=== PATIENT | male | born 1985 | race Caucasian/White ===

== ENCOUNTER → 2019-05-23 | Outpatient (CLI) | payer SELFPAY ==
[~2019-05-23] MED LIST: ALBU8.5H2 IH; CATHETER FLUSH 10 ML SYR IV PRN; CYCL10TA45 PO; DIVA500T15 PO; HOLD METFORMIN - RECEIVED CONTRAST 20 ML VIAL IV SCH; HYDR-2890 PO; IOHEXOL 350 MG/ML 100 ML (OMNIPAQUE 350) VIAL IV ONE; MORP30CA16 PO; NF-TORA10; NS 100 ML (IVPB) BAG IV ONE; OMEP40CA36 PO; ONDA8TAB13; PHEN-633; RISP0.5T2 PO
--- NOTE | 2019-05-23 11:34 | Diagnostic Imaging Report ---
PROCEDURE: CT abdomen and pelvis with contrast. TECHNIQUE: Multiple contiguous axial images were obtained through the abdomen and pelvis after administration of intravenous contrast. Auto Exposure Controls were utilized during the CT exam to meet ALARA standards for radiation dose reduction. INDICATION: Abdominal pain. COMPARISON: None available. FINDINGS: The visualized lung bases are clear. Cholecystectomy. The liver, spleen, adrenal glands, pancreas, and stomach are unremarkable. A 0.7 cm hypodensity within the mid left kidney is too small to fully characterize. Otherwise, the bilateral kidneys and ureters are unremarkable. No aneurysmal dilatation of the abdominal aorta. The urinary bladder is unremarkable. Diffuse mural thickening of the transverse, descending, and sigmoid colon is noted with minimal adjacent fat stranding. The distal sigmoid colon appears to be relatively spared. A loop of small bowel within the left abdomen is mildly dilated measuring up to 3.3 cm. However, no discrete transition point is identified. The proximal small bowel is not dilated. The prostate gland is not enlarged. No significant adenopathy, free air or free fluid within the abdomen and pelvis. Scattered osseous degenerative changes without acute osseous abnormality. IMPRESSION: Mural thickening involving the majority of the transverse and descending colon with portions of the sigmoid colon also involved. Findings are favored to relate to an underlying colitis, likely of an infectious or inflammatory process. Focally dilated loop of small bowel within the left mid abdomen, favored to relate to focal ileus versus physiologic in nature. No focal transition point to suggest definitive bowel obstruction. Cholecystectomy. Additional findings as above. Dictated by: Dictated on workstation # [id number]
== END ==
LOC: RAD 09:43
PROVIDERS: ATTEND Surgery
DX: K63.89 Other specified diseases of intestine (principal); N28.89 Other specified disorders of kidney and ureter; R10.9 Unspecified abdominal pain; Z90.49 Acquired absence of other specified parts of digestive tract
CPT/HCPCS: 74177

== ENCOUNTER 2019-07-30 06:29 | Outpatient (CLI) | payer MEDICAID ==
[~2019-07-30] VITALS: Ht 182.9 cm; Wt 95.5 kg
[~2019-07-30 06:29] MED LIST changes: -CATHETER FLUSH 10 ML SYR IV PRN; -HOLD METFORMIN - RECEIVED CONTRAST 20 ML VIAL IV SCH; -IOHEXOL 350 MG/ML 100 ML (OMNIPAQUE 350) VIAL IV ONE; -NS 100 ML (IVPB) BAG IV ONE
[2019-07-30] MEDS ORDERED: CYCL10TA9 PO (09:01)
[2019-07-30] MEDS ORDERED: RISP2TAB3 PO (09:01)
[2019-07-30] MEDS ORDERED: DIVA-76 PO (09:01)
[2019-07-31] MEDS ORDERED: METR500T PO (12:13)
[2019-07-31] MEDS ORDERED: CIPR500T4 PO (12:13)
== END 2019-07-30 09:20 ==
LOC: PREOP 06:29
PROVIDERS: ATTEND Surgery
DX: Z01.818 Encounter for other preprocedural examination (principal)

== ENCOUNTER 2019-07-31 08:52 | Emergency (ER) | payer MEDICAID ==
[~2019-07-31] VITALS: Ht 182 cm; Wt 96.9 kg
[~2019-07-31 08:52] MED LIST changes: +CYCL10TA9 PO; +DIVA-76 PO; +RISP2TAB3 PO
[2019-07-31] MEDS ORDERED: NS IV 1000 ML 1,000 ML IV SCH (09:39)
[2019-07-31] MEDS ORDERED: IBUPROFEN TABLET 200 MG TAB PO STA (09:39)
--- NOTE | 2019-07-31 09:39 | ED General ---
General Chief Complaint: Fever-Adult/Adol Stated Complaint: FEVER/WHITE COUNT HIGH Nursing Triage Note: ARRIVED VIA AMB TO ROOM 10. BROUGHT BY DAY SURGERY. PT WAS TO HAVE A HERNIA REPAIR TODAY WITH JOSE ALEJANDRO BUT THEY STATE HIS FEVER WAS 103, HIGH WHITE COUNT, AND TACYCARDIA. Nursing Sepsis Screen: Possible Severe Sepsis Risk History of Present Illness Date Seen by Provider: Jul 31, 2019 Time Seen by Provider: 09:37 Initial Comments 34-year-old male brought into for further evaluation. Patient was to have hernia repair surgery today but was found have a fever of 103 with an elevated white count and tachycardic. Patient does complain of some mild shortness of breath. He also has some diarrhea. He has chronic abdominal pain that is not new. Patient reports a chronic cough does not feel like it is new. Allergies and Home Medications Allergies Coded Allergies: Sulfamethoxazole (Unverified Allergy, HIVES, 08/22/12) latex (Unverified Allergy, 08/22/12) SWELLING trimethoprim (Unverified Allergy, HIVES, 08/22/12) Uncoded Allergies: [id number] (EYE DROPS) (Allergy, Mild, 11/18/08) PAPER TAPE (Allergy, Mild, RASH, 11/18/08) Home Medications Cyclobenzaprine HCl 10 Mg Tablet, 10 MG PO BID, (Reported) Divalproex Sodium 500 Mg Tablet.dr, 500 MG PO BID, (Reported) Risperidone 2 Mg Tablet, 2 MG PO BID, (Reported) Patient Home Medication List Home Medication List Reviewed: Yes Review of Systems Review of Systems Constitutional: chills Respiratory: cough, short of breath Cardiovascular: no symptoms reported Gastrointestinal: abdominal pain, diarrhea Genitourinary: no symptoms reported Musculoskeletal: no symptoms reported Skin: no symptoms reported Past Mdptcxx-Tncytv-Gyxsfk Hx Past Med/Social Hx: Reviewed Nursing Past Med/Soc Hx Patient Social History Alcohol Use: Denies Use Recreational Drug Use: No Smoking Status: Current Everyday Smoker Type Used: Cigarettes Recent Foreign Travel: No Contact w/Someone Who Travel: No Recent Infectious Disease Expo: No Recent Hopitalizations: No Immunizations Up To Date Date of Influenza Vaccine: May 20, 2012 Seasonal Allergies Seasonal Allergies: No Past Medical History Surgeries: Yes (cyst removed from thyroid x2, lipoma removed) Appendectomy, Gallbladder, Thyroidectomy Respiratory: Yes COPD Cardiac: No Neurological: Yes Seizure Disorder Genitourinary: No Gastrointestinal: Yes Abdominal Hernia Musculoskeletal: Yes Fibromyalgia Endocrine: No HEENT: No Cancer: No Psychosocial: Yes Schizophrenia Integumentary: No Blood Disorders: No Physical Exam-Suspected Sepsis Physical Exam Vital Signs Vital Signs - First Documented 07/31/19 08:52 Temp 38.1 Pulse 140 B/P (MAP) 103/84 (90) Pulse Ox 94 O2 Delivery Room Air Capillary Refill : Less Than 3 Seconds Blood Pressure Mean: 90 POS Height, Weight, BMI Height: '" Weight: lbs. oz. kg; 29.00 BMI Method: General Appearance: Other (obviously ill) Neck: Normal Inspection, Non Tender Respiratory: Lungs Clear, Normal Breath Sounds Cardiovascular: Tachycardia Gastrointestinal: Tenderness (mild periumbilical) Extremity: Normal Capillary Refill, Normal Inspection, Normal Range of Motion Neurologic/Psychiatric: Oriented x3, No Motor/Sensory Deficits, Normal Mood/Affect Skin: normal color, warm/dry Focused Exam Lactate Level 07/31/19 09:59: Lactic Acid Level 0.88 Lactic Acid Level Laboratory Tests Test 07/31/19 09:59 Lactic Acid Level 0.88 MMOL/L (0.50-2.00) Progress/Results/Core Measures Suspected Sepsis Recent Fever Within 48 Hours: Yes Infection Criteria Present: Suspected New Infection New/Unexplained Altered Menta: No Sepsis Screen: Possible Severe Sepsis Risk SIRS Temperature: Pulse: 140 Respiratory Rate: Blood Pressure 103 /84 Mean: 90 07/31/19 09:59: Lactic Acid Level 0.88 Results/Orders Lab Results Laboratory Tests Test 07/31/19 09:59 07/31/19 10:28 Range/Units Lactic Acid Level 0.88 0.50-2.00 MMOL/L Urine Color YELLOW Urine Clarity CLEAR Urine pH 5.5 5-9 Urine Specific [place] 1.025 H 1.016-1.022 Urine Protein TRACE NEGATIVE Urine Glucose (UA) NEGATIVE NEGATIVE Urine Ketones TRACE H NEGATIVE Urine Nitrite NEGATIVE NEGATIVE Urine Bilirubin 1+ H NEGATIVE Urine Urobilinogen 0.2 < = 1.0 MG/DL Urine Leukocyte Esterase NEGATIVE NEGATIVE Urine RBC (Auto) NEGATIVE NEGATIVE Urine RBC NONE /HPF Urine WBC RARE /HPF Urine Squamous Epithelial Cells NONE /HPF Urine Crystals NONE /LPF Urine Bacteria NEGATIVE /HPF Urine Casts NONE /LPF Urine Mucus LARGE H /LPF Urine Culture Indicated NO Micro Results Microbiology 07/31/19 Influenza Types A,B Antigen (MERLE) - Final, Complete My Orders Orders - FAIZAN STEWARD DO Lactic Acid Analyzer (07/31/19 09:39) Ua Culture If Indicated (07/31/19 09:39) Influenza A And B Antigens (07/31/19 09:39) Ibuprofen Tablet (Motrin Tablet) (07/31/19 09:39) Ed Iv/Invasive Line Start (07/31/19 09:39) Ns Iv 1000 Ml (Sodium Chloride 0.9%) (07/31/19 09:39) Ct Abdomen/Pelvis W (07/31/19 10:54) Chest Pa/Lat (2 View) (07/31/19 10:54) Iohexol Injection (Omnipaque 350 Mg/Ml 1 (07/31/19 11:15) Received Contrast (Hold Metformin- Contr (07/31/19 11:15) Sodium Chloride Flush (Catheter Flush Sy (07/31/19 11:15) Ns (Ivpb) (Sodium Chloride 0.9% Ivpb Bag (07/31/19 11:15) Medications Given in ED Current Medications Medications Dose Ordered Sig/Gricelda Route Start Time Stop Time Status Last Admin Dose Admin Iohexol 100 ml ONCE ONCE IV 07/31/19 11:15 07/31/19 11:16 DC 07/31/19 11:33 100 ML Sodium Chloride 10 ml NEEDED PRN IV 07/31/19 11:15 07/31/19 11:33 10 ML Sodium Chloride 100 ml ONCE ONCE IV 07/31/19 11:15 07/31/19 11:16 DC 07/31/19 11:33 80 ML Vital Signs/I&O 07/31/19 07/31/19 08:52 11:06 Temp 38.1 37.7 Pulse 140 B/P (MAP) 103/84 (90) Pulse Ox 94 O2 Delivery Room Air Capillary Refill : Less Than 3 Seconds Blood Pressure Mean: 90 POS Departure Impression Primary Impression: Colitis Disposition: 01 HOME, SELF-CARE Condition: Stable Departure-Patient Inst. Referrals: NO,LOCAL PHYSICIAN (PCP/Family) Primary Care Physician Patient Instructions: Colitis Scripts Metronidazole (Flagyl) 500 Mg Tablet 500 MG PO Q8H for 7 Days, #21 TAB Prov: FAIZAN STEWARD DO 07/31/19 Ciprofloxacin HCl (Ciprofloxacin HCl) 500 Mg Tablet 500 MG PO BID, #14 TAB Prov: FAIZAN STEWARD DO 07/31/19 FAIZAN STEWARD DO Jul 31, 2019 09:39 POS
[2019-07-31 10:33] LABS: CLARITY,URINE CLEAR; COLOR,URINE YELLOW; GLUCOSE, URINE (UA) NEGATIVE (NEGATIVE); KETONES,URINE TRACE (NEGATIVE); LEUKOCYTE ESTERASE ,URINE NEGATIVE (NEGATIVE); NITRITE,URINE NEGATIVE (NEGATIVE); PH,URINE 5.5 (5-9); PROTEIN,URINE TRACE (NEGATIVE)
[2019-07-31 10:46] LABS: BACTERIA,URINE NEGATIVE /HPF; BILIRUBIN,URINE 1+ (NEGATIVE); WBC,URINE RARE /HPF
[2019-07-31] MEDS ORDERED: HOLD METFORMIN - RECEIVED CONTRAST 20 ML VIAL IV SCH (11:15)
[2019-07-31] MEDS ORDERED: NS 100 ML (IVPB) BAG IV ONE (11:15)
[2019-07-31] MEDS ORDERED: IOHEXOL 350 MG/ML 100 ML (OMNIPAQUE 350) VIAL IV ONE (11:15)
[2019-07-31] MEDS ORDERED: CATHETER FLUSH 10 ML SYR IV PRN (11:15)
--- NOTE | 2019-07-31 11:52 | Diagnostic Imaging Report ---
INDICATION: Fever. COMPARISON: 11/18/2008. FINDINGS: Frontal and lateral views of the chest demonstrate normal heart size and pulmonary vascularity. The lungs are clear. There are no signs of infiltrate, pleural effusions or pneumothoraces. The visualized osseous structures show no acute abnormalities. IMPRESSION: 1. No acute process. No signs of infiltrates, effusions or pneumothoraces. Dictated by: Dictated on workstation # [id number]
--- NOTE | 2019-07-31 11:58 | Diagnostic Imaging Report ---
CT ABDOMEN/PELVIS W PROCEDURE: CT abdomen and pelvis with contrast. TECHNIQUE: Multiple contiguous axial images were obtained through the abdomen and pelvis after administration of intravenous contrast. INDICATION: Fever, tachycardia COMPARISON: 05/23/2019 FINDINGS: There is mild low-density in the liver likely due to fatty infiltration. There is also calcification in the lateral segment of left hepatic lobe which could be due to granuloma or postoperative residual. Gallbladder is surgically absent. There is no evidence of pancreatic, adrenal gland or splenic abnormality. Kidneys are stable and unremarkable in appearance. There is no evidence of free fluid. Mild mural thickening is again seen throughout the colon as described on the previous study. There is probable mild mural thickening also at the level of the terminal ileum. There is no evidence of organized fluid collection. No pathologic adenopathy is identified. IMPRESSION: Mural thickening involving the terminal ileum and the colon. The possibility of colitis is not excluded. Consideration should also be given to inflammatory bowel disease. If warranted, endoscopy may be of value with particular attention to the ileocolic junction. Dictated by: Dictated on workstation # [id number]
[2019-07-31] MEDS ORDERED: CIPR500T4 PO (12:13)
[2019-07-31] MEDS ORDERED: METR500T PO (12:13)
[2019-07-31 12:26] VITALS: BP 115/66
== END 2019-07-31 12:26 | disposition home or self-care (01) ==
LOC: EDUNIT# 08:52 → ER 08:54
DX: K52.9 Noninfective gastroenteritis and colitis, unspecified (principal); J44.9 Chronic obstructive pulmonary disease, unspecified; G40.909 Epilepsy, unspecified, not intractable, without status epilepticus; M79.7 Fibromyalgia; F20.9 Schizophrenia, unspecified; F17.210 Nicotine dependence, cigarettes, uncomplicated; Z90.49 Acquired absence of other specified parts of digestive tract; Z88.2 Allergy status to sulfonamides; Z88.1 Allergy status to other antibiotic agents; Z91.040 Latex allergy status
CPT/HCPCS: 71046; 74177; 81000; 83605; 87804; 96360

== ENCOUNTER → 2019-08-25 | Outpatient (CLI) | payer MEDICAID ==
[~2019-08-25] MED LIST changes: +CIPR500T4 PO; +METR500T PO
== END | disposition home or self-care (01) ==
LOC: PREOP 05:37
PROVIDERS: ATTEND Surgery
DX: Z01.818 Encounter for other preprocedural examination (principal)

== ENCOUNTER 2019-09-01 05:41 | Outpatient (CLI) | payer MEDICAID ==
[~2019-09-01] VITALS: Ht 182.9 cm; Wt 95.5 kg
[2019-09-01 09:12] LABS: BASOPHILS % (AUTO) 0 % (0-10); EOSINOPHILS # (AUTO) 0.3 10^3/uL (0.0-0.3); EOSINOPHILS % (AUTO) 3 % (0-10); HEMATOCRIT 45 % (40-54); HEMOGLOBIN 15.6 G/DL (13.3-17.7); LYMPHOCYTES # (AUTO) 2.9 X 10^3 (1.0-4.0); LYMPHOCYTES % (AUTO) 38 % (12-44); MEAN CORPUSCULAR HEMOGLOBIN 29 PG (25-34); MEAN CORPUSCULAR HGB CONC 35 G/DL (32-36); MEAN CORPUSCULAR VOLUME 84 FL (80-99); MEAN PLATELET VOLUME 11.1 FL (7.4-10.4); MONOCYTES # (AUTO) 0.9 X 10^3 (0.0-1.0); MONOCYTES % (AUTO) 11 % (0-12); NEUTROPHILS # (AUTO) 3.7 X 10^3 (1.8-7.8); NEUTROPHILS % (AUTO) 48 % (42-75); PLATELET COUNT 207 10^3/uL (130-400); RED CELL DISTRIBUTION WIDTH 13.8 % (10.0-14.5); WHITE BLOOD COUNT 7.7 10^3/uL (4.3-11.0)
[2019-09-03] MEDS ORDERED: ACHD5005 PO (11:43)
== END 2019-09-01 09:12 | disposition home or self-care (01) ==
LOC: PREOP 05:41
PROVIDERS: ATTEND Surgery
DX: Z01.818 Encounter for other preprocedural examination (principal); Z01.812 Encounter for preprocedural laboratory examination; K43.2 Incisional hernia without obstruction or gangrene
CPT/HCPCS: 36415; 85025; 87081

== ENCOUNTER 2019-09-01 08:42 | Day surgery (SDC) | payer MEDICAID ==
[~2019-09-01] VITALS: Ht 182.9 cm; Wt 96.9 kg
[2019-09-01] VITALS (8 sets, daily range): BP systolic 111–131; BP diastolic 60–92
[2019-09-01] MEDS ORDERED: LACTATED RINGERS 1,000 ML IV ONE (08:48)
[2019-09-01] MEDS ORDERED: LACTATED RINGERS 1,000 ML IV STA (08:54)
[2019-09-01] MEDS ORDERED: PROPOFOL INJECTION 50 ML IV ONE (09:53)
[2019-09-01] MEDS ORDERED: MIDAZOLAM 2 MG/2 ML (VERSED) VIAL ONE (09:54)
--- NOTE | 2019-09-01 10:05 | Progress Note-Pre Operative ---
Pre-Operative Progress Note H&P Reviewed The H&P was reviewed, patient examined and no changes noted. Time Seen by Provider: 10:03 Date H&P Reviewed: Sep 01, 2019 Time H&P Reviewed: 10:02 Pre-Operative Diagnosis: colitis GLENNA BLOUNT DO Sep 01, 2019 10:05
--- NOTE | 2019-09-01 10:32 | Progress Note-Post Operative ---
Post-Operative Progess Note Surgeon (s)/Structural Analysis Engineer (s) Surgeon GLENNA BLOUNT DO Structural Analysis Engineer: Brooke Zamarripa Pre-Operative Diagnosis colitis Post-Operative Diagnosis Diverticula Interna Hemorrhoids Procedure & Operative Findings Date of Procedure 09/01/19 Procedure Performed/Findings Colon Anesthesia Type IV sedation by PRINCIPAL LIBRARIAN Estimated Blood Loss Estimated blood loss (mL): none Specimens/Packing Specimens Removed none GLENNA BLOUNT DO Sep 01, 2019 10:32
--- NOTE | 2019-09-01 10:33 | Endoscopy Discharge Instruct ---
Endo Procedure/Findings Findings 1.: Diverticulosis 2.: Internal Hemorrhoids Discharge Instructions - Activity: You might feel a little sleepy until tomorrow. This is due to the medicine you received to relax you. Until tomorrow, you should: NOT drive a car, operate machinery or power tools. NOT drink any alcoholic beverages. NOT make any important decisions or sign importortant papers. Do not return to work until tomorrow, unless otherwise instructed. Resume previous activities tomorrow. Diet: Start by taking liquids. If you tolerate liquids, advance to solid food. make an appointment for one week 1.: Colonscopy in 10 years Notify Physician - If you experience excessive bleeding, unusual abdominal pain, fever, or chest pain, contact your doctor immediately. GLENNA BLOUNT DO Sep 01, 2019 10:33
--- NOTE | 2019-09-01 12:06 | Anesthesia-General Post-Op ---
MAC Patient Condition Mental Status/LOC: Same as Preop Cardiovascular: Satisfactory Nausea/Vomiting: Absent Respiratory: Satisfactory Pain: Controlled Complications: Absent Post Op Complications Complications None Follow Up Care/Instructions Patient Instructions None needed. Anesthesiology Discharge Order Discharge Order Patient is doing well, no complaints, stable vital signs, no apparent adverse anesthesia problems. No complications reported per nursing. RACHEL RUSSO CRNA Sep 01, 2019 12:06
--- NOTE | 2019-09-02 01:01 | OPERATIVE REPORT ---
DATE OF SERVICE: 09/01/2019 PREOPERATIVE DIAGNOSIS: Colitis. POSTOPERATIVE DIAGNOSES: Diverticula, internal hemorrhoids. PROCEDURE: Colonoscopy. SURGEON: Daniele English DO. BRICKMASON HELPER: KELLEY Whitney. ANESTHESIA: IV sedation by GENE. SPECIMENS: None. BLOOD LOSS: None. FLUIDS: Per anesthesia. POSTOPERATIVE CONDITION: Stable. INDICATION FOR PROCEDURE: The patient is a 34-year-old male, who has been having abdominal pain and sent him to the emergency room twice. Both times he had a CAT scan, which showed some colitis and he needed a workup. FINDINGS: The patient had normal appearing colon, very small diverticula and some internal hemorrhoids. No other obvious pathology, no inflammation, no ulceration seen. PROCEDURE NOTE: After informed consent was obtained, the patient was brought to the endoscopy suite and placed in the left lateral decubitus position. He was administered IV sedation by the FARMWORKER [employer], who then monitored his vitals the entire time, heart rate, blood pressure and pulse ox. A scope was inserted all the way to 140 cm, able to get to the cecum, took a picture of appendiceal orifice, noted the ileocecal valve and then slowly withdrew the scope insufflating to look circumferentially at the galarza looking at the cecum, up the ascending colon to the hepatic flexure, then down the transverse colon to the splenic flexure, into the descending colon and down into the sigmoid. In the sigmoid, saw one small diverticula and then continued down into the rectum, retroflexed the rectal vault, saw some very minimal internal hemorrhoids. No other obvious pathology. Removed the scope. The patient tolerated the procedure and recovered in endoscopy suite. Job ID: [id number] DocumentID: [id number] Dictated Date: 09/01/2019 16:42:09 Ferry Engineer Date: 09/02/2019 01:01:26 Dictated By: DANIELE ENGLISH DO
== END 2019-09-01 11:25 | disposition home or self-care (01) ==
LOC: ENDO 08:42
PROVIDERS: ATTEND Surgery
DX: K57.30 Diverticulosis of large intestine without perforation or abscess without bleeding (principal); K64.8 Other hemorrhoids; K52.9 Noninfective gastroenteritis and colitis, unspecified; Z80.0 Family history of malignant neoplasm of digestive organs; F31.9 Bipolar disorder, unspecified; G40.909 Epilepsy, unspecified, not intractable, without status epilepticus; K43.0 Incisional hernia with obstruction, without gangrene; Z79.899 Other long term (current) drug therapy

== ENCOUNTER 2019-09-03 08:42 | Day surgery (SDC) | payer MEDICAID ==
[2019-09-03] VITALS (11 sets, daily range): BP systolic 121–134; BP diastolic 69–94
[~2019-09-03] VITALS: Ht 182.9 cm; Wt 95.5 kg
[2019-09-03] MEDS ORDERED: ceFAZolin 2 GM/50 ML NS 50 ML IV ONE (08:45)
[2019-09-03] MEDS ORDERED: CATHETER FLUSH 10 ML SYR IV PRN (09:15)
[2019-09-03] MEDS: LACTATED RINGERS 1,000 ML IV PRN ×2 (09:21→11:10)
[2019-09-03] MEDS ORDERED: RT-ALBUINH INH (09:37)
[2019-09-03] MEDS ORDERED: BUP/EPI 0.5% 1:200,000 (SENSORCAINE) 30 ML VIAL ONE (09:52)
[2019-09-03] MEDS ORDERED: MIDAZOLAM 2 MG/2 ML (VERSED) VIAL ONE (10:36)
[2019-09-03] MEDS ORDERED: fentaNYL INJECTION 100 MCG/2 ML AMP ONE (10:36)
--- NOTE | 2019-09-03 10:41 | Progress Note-Pre Operative ---
Pre-Operative Progress Note H&P Reviewed The H&P was reviewed, patient examined and no changes noted. Time Seen by Provider: 10:37 Date H&P Reviewed: Sep 03, 2019 Time H&P Reviewed: 10:38 Pre-Operative Diagnosis: Incarcerated incisional/ventral hernia GLENNA BLOUNT DO Sep 03, 2019 10:41
[2019-09-03] MEDS ORDERED: proPOfol 200 MG/20 ML (DIPRIVAN) VIAL IV ONE (11:20)
[2019-09-03] MEDS ORDERED: DEXAMETHASONE 10 MG/ML (DECADRON) 1 ML VIAL ONE (11:20)
[2019-09-03] MEDS ORDERED: LIDOCAINE PF 2% 5 ML (XYLOCAINE) VIAL ONE (11:20)
[2019-09-03] MEDS ORDERED: ONDANSETRON 4 MG/2 ML (SDV) Z0FRAN ONE (11:20)
[2019-09-03] MEDS ORDERED: SEVOFLURANE (ULTANE) 15 ML INHAL SOLN ONE ×2 (11:20→11:33)
[2019-09-03] MEDS ORDERED: NEOSTIGMINE 1 MG/ML 5 ML SYRINGE ONE (11:20)
[2019-09-03] MEDS ORDERED: GLYCOPYRROLATE 0.2 MG/ML (ROBINUL) 2 ML VIAL ONE (11:20)
--- NOTE | 2019-09-03 11:42 | Progress Note-Post Operative ---
Post-Operative Progess Note Surgeon (s)/Construction Equipment Mechanic (s) Surgeon GLENNA BLOUNT DO Construction Equipment Mechanic: José Pre-Operative Diagnosis Incarcerated incisional/ventral hernia Post-Operative Diagnosis same Procedure & Operative Findings Date of Procedure 09/03/19 Procedure Performed/Findings Lap Incarcerated Inc/Ventral Herniarraphy with mesh placement Anesthesia Type GET Estimated Blood Loss Estimated blood loss (mL): scant Specimens/Packing Specimens Removed hernia contents GLENNA BLOUNT DO Sep 03, 2019 11:41
[2019-09-03] MEDS ORDERED: ACHD5005 PO (11:43)
--- NOTE | 2019-09-03 11:44 | Discharge Inst-Surgical ---
Discharge Inst-Surgical Depart Medication/Instructions New, Converted or Re-Newed RX: RX Given to Pt/Family Patient Instructions Follow up Appt: Make appointment for 1 week. [phone] Instructions: No lifting greater than 20 pounds. No strenuous activity. May shower in 24 hours, no tub bath or soaking. Use incentive spirometer at home as directed. No Smoking Skin/Wound Care: May remove bandages in am. You need to leave the Dermabond on incision it will fall off on it's own. Symptoms to Report: Appetite Changes, Extremity Discoloration, Numbness/Tingling, Swelling Increased, Bleeding Excessive, Eyesight Changes, Pain Increased, Urine Color Change, Constipation(Persistent), Fever over 101 degree F, Pain/Pressure in chest, Urinating Difficulty, Cough Up/Vomit Blood, Heart Beat Irreg/Pounding, Pain/Pressure in jaw, Cramps in feet or legs, Lightheadedness, Pain/Pressure in shoulder, Diarrhea(Persistent), Memory Changes Suddenly, Questions/Concerns, Weight gain consecutive days, Dizziness/Fainting, Nausea/Vomiting, Shortness of Breath, Weight gain over 2 pounds If questions or concerns contact your physician Or seek help at emergency department. Activity Activity as Tolerated: Yes Activity Instructions: Avoid Stress to Incision Driving Instructions: No Driving/Refer to Dr. Post Discharge Diet: No Restrictions Diet After 24 Hours: Clear Liquid if Nauseous If Any Problems/Questions/Issu: Contact Your Physician, Go to Emergency Room Skin/Wound Care Infection Signs and Symptoms: Increased Redness, Foul Odor of Wound, Increased Drainage, Skin Itchy or Has a Rash, Increased Swelling, Temperature Above 101 F Wound Care Comment: heating pad to shoulder or neck tonight for pain Bathing Instructions: Shower Stitches/Ale/Dermabond Dis: Dermabond Ice Pack: Ice On and Off Site GLENNA BLOUNT DO Sep 03, 2019 11:43
[2019-09-03] MEDS ORDERED: morphine INJ 10 MG/ML 1ML (SYR OR VIAL) IVP ONE (12:00)
[2019-09-03] MEDS ORDERED: ONDANSETRON 4 MG/2 ML (SDV) Z0FRAN IVP PRN (12:00)
--- NOTE | 2019-09-03 12:55 | NUR ---
TO AMB SURG FROM PAR PER CART. ALERT, RATES ABDOMINAL PAIN 8. DERMABOND INTACT TO X4 LAP ABD SURGICAL SITES, ICE PACK ON. PO FLUIDS AND CRACKERS PROVIDED.
[2019-09-03] MEDS ORDERED: HYDROcodone/APAP 5 MG/325 MG (LORTAB) TAB PO PRN (13:15)
[2019-09-03] MEDS ORDERED: HYDROcodone/APAP 5 MG/325 MG (LORTAB) TAB ONE (13:17)
--- NOTE | 2019-09-03 13:26 | NUR ---
TAKING PO FLUIDS AND CRACKERS WITHOUT PROBLEM. LORTAB 5/325 MG, ONE TABLET GIVEN PO.
--- NOTE | 2019-09-03 14:15 | NUR ---
REPORTS PAIN LEVEL DECREASED, NOW RATED 3-4. ALERT, TAKING PO FLUIDS WELL AND HAS BEEN UP TO BR WITH ASSIST. GAIT STEADY, VOIDS WITHOUT PROBLEM. STATES HE IS READY FOR DISMISSAL.
--- NOTE | 2019-09-03 19:42 | OPERATIVE REPORT ---
DATE OF SERVICE: PREOPERATIVE DIAGNOSIS: Incarcerated incisional ventral hernia. POSTOPERATIVE DIAGNOSIS: Incarcerated incisional ventral hernia. PROCEDURE: Laparoscopic incisional ventral herniorrhaphy with mesh placement. SURGEON: Daniele English DO. BORING MACHINE OPERATOR PRODUCTION: Dr. Kumar. ANESTHESIA: General endotracheal tube. SPECIMENS: Hernia contents. BLOOD LOSS: Scant. FLUIDS: Per anesthesia. POSTOPERATIVE CONDITION: Stable. INDICATION FOR PROCEDURE: The patient is a 34-year-old male who has pain in the middle abdomen from the incarcerated incisional hernia. FINDINGS: The patient had incarcerated incisional hernia at 2 or 3 holes in the midline from previous open incision. PROCEDURE NOTE: After informed consent was obtained, the patient was brought to the operating room, placed on the operating table in supine position, sterilely prepped and draped in normal fashion. Local lidocaine was used to infiltrate the skin in the left upper quadrant. I made an incision with #11 blade, carried down through the skin into the subcutaneous tissue, deepened down to subcutaneous tissue with Bovie electrocautery down to the fascia. Fascia incised with Bovie electrocautery, and then bluntly spread the muscle apart, went through the posterior fascia, bluntly spread the muscle and then bluntly entered through the peritoneum. Placed 11 mm trocar port under direct visualization. Created pneumoperitoneum and noted adhesions, able to see the left lower quadrant. I placed a 5 mm trocar port under direct visualization using local lidocaine, 11 blade for stab incision and VersaStep system, all done under direct visualization and then started taking down some of the adhesions, some of these were able to taken down bluntly. I then used the LigaSure to come across to grasping fat, clamping, coagulating and transecting and then able to visualize the other side of the abdomen and placed another 5 mm port in a normal fashion with VersaStep system and then able to continue taking down the omentum that was stuck in the fascial defect and then we pulled more fat out of the fascial defect. Once we free this up, the fascial defects measured about 5 cm area. Elected to place a 6-inch x 4-inch oval mesh, placed this into the abdomen and then made a small stab incision in the midline. Able to grasp the piece of mesh and pulled this up. I blow up the balloon to hold in place and then used SecureStrap tackers to tack around tacking at 9 o'clock, 12 o'clock, 6 o'clock, and 3 o'clock position and then in between 0.5 to 1 cm incisions and then another in the middle to create like a crown. The mesh looked very good in good position. At this point, then we removed all ports under direct visualization, allowed pneumoperitoneum to escape. Closed the fascia of the left upper quadrant incision with 0 Vicryl [id number] suture. Copiously irrigated all incisions with normal saline. Closed the 2 small 5 mm incisions with single interrupted 4-0 undyed Monocryl subcuticular stitch, closed the left upper quadrant incision with 3 interrupted 4-0 undyed Monocryl subcuticular stitches. Area was cleaned and dried. Dermabond and Band-Aids placed. The patient tolerated the procedure. Sponge, instrument and needle count correct at the end of the case. Job ID: [id number] DocumentID: [id number] Dictated Date: 09/03/2019 11:40:38 Conservation Scientist Date: 09/03/2019 19:41:27 Dictated By: DANIELE ENGLISH DO
== END 2019-09-03 14:28 | disposition home or self-care (01) ==
LOC: SDC 08:42
PROVIDERS: ATTEND Surgery
DX: K43.0 Incisional hernia with obstruction, without gangrene (principal); K21.9 Gastro-esophageal reflux disease without esophagitis; J44.9 Chronic obstructive pulmonary disease, unspecified; M79.7 Fibromyalgia; G40.909 Epilepsy, unspecified, not intractable, without status epilepticus; F31.9 Bipolar disorder, unspecified; F17.210 Nicotine dependence, cigarettes, uncomplicated; F20.9 Schizophrenia, unspecified; Z90.89 Acquired absence of other organs; Z90.49 Acquired absence of other specified parts of digestive tract; Z79.899 Other long term (current) drug therapy; Z88.1 Allergy status to other antibiotic agents; Z91.040 Latex allergy status; Z88.2 Allergy status to sulfonamides; Z91.048 Other nonmedicinal substance allergy status; Z82.49 Family history of ischemic heart disease and other diseases of the circulatory system; Z83.3 Family history of diabetes mellitus; Z80.0 Family history of malignant neoplasm of digestive organs
CPT/HCPCS: 94664

== ENCOUNTER 2020-12-13 19:37 | Emergency (ER) | payer MEDICAID ==
[~2020-12-13 19:37] MED LIST changes: +ACHD5005 PO; -CIPR500T4 PO; +CIPR500T5 PO; -RISP2TAB3 PO; +RISP2TAB84 PO; +RT-ALBUINH INH
--- NOTE | 2020-12-13 20:27 | ED General ---
General Chief Complaint: Cough/Cold/Flu Symptoms Stated Complaint: COUGH | FEVER | SORE THROAT | SOB Nursing Triage Note: Pt complaining of a sore throat, cough and low-grade fever that started about a week ago Nursing Sepsis Screen: No Definite Risk Source of Information: Patient History of Present Illness Date Seen by Provider: Dec 13, 2020 Time Seen by Provider: 19:40 Initial Comments 35-year-old male ending with over a week of cough, sore throat and subjective fever and chills. He recently was treated for strep throat and felt like his throat got better but now is worse again. He is a smoker and feels like his cough is not any worse than his usual smoker's cough. He is not bringing up any congestion more than his usual smoking cough. He has not been feeling well over the last week. He has very hoarse voice with throat pain. He denies having a primary care provider to follow-up with. He continues to smoke despite the symptoms. He has had 2 children at home that have been sick with upper respiratory and cold symptoms. Timing/Duration: 1 Week Severity: Moderate Associated Systoms: No Chest Pain; Cough; No Diaphoresis; Fever/Chills (Subjective); No Headaches, No Loss of Appetite; Malaise; No Nausea/Vomiting, No Rash, No Seizure; Shortness of Air; No Syncope; Weakness Allergies and Home Medications Allergies Coded Allergies: latex (Unverified Allergy, Unknown, 07/31/19) SWELLING sulfamethoxazole (Unverified Allergy, Unknown, HIVES, 07/31/19) tetrahydrozoline (Verified Allergy, Unknown, 09/01/19) trimethoprim (Unverified Allergy, Unknown, HIVES, 07/31/19) Uncoded Allergies: PAPER TAPE (Allergy, Mild, RASH, 11/18/08) Home Medications Albuterol Sulfate 1 Puff Puff, 2 PUFF INH Q4H, (Reported) 1 PUFF = 90 MCG Azithromycin 250 Mg Tablet, 250 MG PO DAILY Prescribed by: SHIRLEY MEJIA on 12/13/20 2100 Cyclobenzaprine HCl 10 Mg Tablet, 10 MG PO BID, (Reported) Divalproex Sodium 500 Mg Tablet.dr, 500 MG PO BID, (Reported) Hydrocodone Bit/Acetaminophen 1 Tab Tab, 1 TAB PO Q6H PRN for PAIN-MODERATE Prescribed by: GLENNA BLOUNT on 09/03/19 1143 Risperidone 2 Mg Tablet, 2 MG PO BID, (Reported) Patient Home Medication List Home Medication List Reviewed: Yes Review of Systems Review of Systems Constitutional: chills, fever (Subjective), malaise EENTM: hoarseness, nose congestion; No ear pain, No blurred vision, No epistaxis Respiratory: cough, short of breath; No stridor, No wheezing Cardiovascular: No chest pain Gastrointestinal: no symptoms reported Genitourinary: no symptoms reported Musculoskeletal: no symptoms reported Skin: No rash Psychiatric/Neurological: Denies Headache, Denies Seizure Hematologic/Lymphatic: Denies Easy Bleeding, Denies Easy Bruising Immunological/Allergic: see HPI (Seasonal allergies) Past Psvwqvm-Rhersk-Tkwfro Hx Past Med/Social Hx: Reviewed Nursing Past Med/Soc Hx Patient Social History Alcohol Use: Rarely Uses Number of Drinks Today: AA Alcohol Beverage of Choice: Beer Type Used: Cigarettes Recent Infectious Disease Expo: No Recent Hopitalizations: No Immunizations Up To Date Date of Influenza Vaccine: May 20, 2012 Seasonal Allergies Seasonal Allergies: No Past Medical History Surgeries: Yes (cyst removed from thyroid x2, lipoma removed) Appendectomy, Gallbladder, Thyroidectomy Respiratory: Yes COPD Cardiac: No Neurological: Yes Seizure Disorder Genitourinary: No Gastrointestinal: Yes Abdominal Hernia Musculoskeletal: Yes Fibromyalgia Endocrine: No HEENT: No Cancer: No Psychosocial: Yes Schizophrenia Integumentary: No Blood Disorders: No Physical Exam Vital Signs Vital Signs - First Documented 12/13/20 19:40 Temp 37.2 Pulse 112 Resp 18 B/P (MAP) 174/101 (125) Pulse Ox 97 O2 Delivery Room Air Capillary Refill : Less Than 3 Seconds Height, Weight, BMI Height: '" Weight: lbs. oz. kg; 28.54 BMI Method: General Appearance: No Apparent Distress, WD/WN HEENT: PERRL/EOMI, TMs Normal, Normal ENT Inspection, Moist Mucous Membranes, Pharyngeal Erythema; No Photophobia, No Tonsillar Exudate, No Tonsillar Enlargement Neck: Full Range of Motion, Normal Inspection, Non Tender, Supple Respiratory: Chest Non Tender, Lungs Clear, Normal Breath Sounds, No Accessory Muscle Use, No Respiratory Distress Cardiovascular: Regular Rate, Rhythm, Normal Peripheral Pulses Gastrointestinal: Normal Bowel Sounds, No Pulsatile Mass, Non Tender, Soft Extremity: Normal Capillary Refill, No Pedal Edema Neurologic/Psychiatric: Alert, Oriented x3, No Motor/Sensory Deficits, Normal Mood/Affect, 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 Skin: Normal Color, Warm/Dry Progress/Results/Core Measures Suspected Sepsis Recent Fever Within 48 Hours: No Infection Criteria Present: None New/Unexplained Altered Menta: No Sepsis Screen: No Definite Risk SIRS Temperature: Pulse: 112 Respiratory Rate: 18 Blood Pressure 174 /101 Mean: 125 Results/Orders Lab Results Laboratory Tests Test 12/13/20 20:25 Range/Units Group A Streptococcus Screen NEGATIVE NEGATIVE My Orders Orders - SHIRLEY MEJIA MD Rapid Strep A Screen (12/13/20 20:23) Chest 1 View Ap/Pa Only (12/13/20 20:23) Azithromycin Tablet (Zithromax Tablet) (12/13/20 20:56) Vital Signs/I&O 12/13/20 12/13/20 19:40 21:02 Temp 37.2 37.2 Pulse 112 100 Resp 18 18 B/P (MAP) 174/101 (125) 162/98 (125) Pulse Ox 97 98 O2 Delivery Room Air Room Air Capillary Refill : Less Than 3 Seconds Blood Pressure Mean: 125 Progress Note #1: Progress Note Obtain chest x-ray to evaluate for possible pneumonia or infiltrate with his complaint of shortness of breath and cough with subjective fever over a week. With his tobacco abuse he is at risk of atypical infections. Swab his throat for strep since he had recent treatment could be that he may not of finish the course or completely eradicated strep. If so then this could also be treated for. Progress Note #2: Progress Note Chest x-ray does not demonstrate any acute infiltrate or effusion. Rapid strep was negative. With the patient continued to have cough and feeling more short of breath will cover him with a Z-Akash to treat for his increased risk of potential atypical infection. Counseled on follow-up and return precautions. On recheck of his blood pressure was down to 141/77 prior to discharge. Advised to establish care with the [facility] clinic and they may want him on a low-dose of blood pressure medicine however his pressures not high enough that I would start medication from here in the ED. Diagnostic Imaging Diagonstic Imaging: Xray Plain Films/CT/US/NM/MRI: chest [facility] [place], [place] NAME: LUPE MATHUR [facility] REC#: [id number] PT STATUS: REG ER : 1985 PHYSICIAN: SHIRLEY MEJIA MD ADMIT DATE: 12/13/20/ER FS Signed Date of Exam:12/13/20 CHEST 1 VIEW AP/PA ONLY INDICATION: Cough, fever, shortness of breath COMPARISON: 07/31/2019 FINDINGS: The lungs are clear, there is no failure, effusion or pneumothorax. IMPRESSION: No acute appearing abnormality. Dictated by: Dictated on workstation # [id number] Dict: 12/13/202038 Trans: 12/13/202058 [facility] [id number] Interpreted by: ROME RIOS Electronically signed by: ROME RIOS 12/13/202058 Departure Impression Primary Impression: Upper respiratory infection with cough and congestion Additional Impressions: Tobacco abuse Pharyngitis Qualified Codes: J02.9 - Acute pharyngitis, unspecified Disposition: HOME, SELF-CARE Condition: Stable Departure-Patient Inst. Decision time for Depature: 20:58 Referrals: NO,LOCAL PHYSICIAN (PCP) Primary Care Physician [facility] Patient Instructions: Sore Throat, Adult ED, Upper Respiratory Infection ED, Cough, Adult ED, Quitting Smoking Add. Discharge Instructions: Stay well hydrated and take the full course of antibiotics. Take over the counter Mucinex to help with cough and loosen congestion. Stopping smoking will help with cough and breathing as well. Establish care with primary provider in [facility] by calling [phone] All discharge instructions reviewed with patient and/or family. Voiced understanding. Scripts Azithromycin (Azithromycin) 250 Mg Tablet 250 MG PO DAILY for 4 Days, #4 TAB 0 Refills Prov: SHIRLEY MEJIA MD 12/13/20 Work/School Note: Work Release Form Date Seen in the Emergency Department: Dec 13, 2020 Return to Work: Dec 17, 2020 Restrictions: Return-No Fever (24hrs) SHIRLEY MEJIA MD Dec 13, 2020 20:27
--- NOTE | 2020-12-13 20:43 | Diagnostic Imaging Report ---
INDICATION: Cough, fever, shortness of breath COMPARISON: 07/31/2019 FINDINGS: The lungs are clear, there is no failure, effusion or pneumothorax. IMPRESSION: No acute appearing abnormality. Dictated by: Dictated on workstation # [id number]
[2020-12-13] MEDS ORDERED: AZITHROMYCIN 250 MG TAB (ZITHROMAX) PO STA (20:56)
[2020-12-13] MEDS ORDERED: AZIT250T12 PO (21:00)
[2020-12-13 21:02] VITALS: BP 162/98
== END 2020-12-13 21:07 | disposition home or self-care (01) ==
LOC: EDUNIT# 19:37 → ER FS 19:39
DX: J06.9 Acute upper respiratory infection, unspecified (principal); R05 Cough; R09.81 Nasal congestion; F17.200 Nicotine dependence, unspecified, uncomplicated; J02.9 Acute pharyngitis, unspecified; J44.9 Chronic obstructive pulmonary disease, unspecified; F20.9 Schizophrenia, unspecified; Z88.2 Allergy status to sulfonamides; Z88.1 Allergy status to other antibiotic agents; Z91.040 Latex allergy status; Z88.8 Allergy status to other drugs, medicaments and biological substances
CPT/HCPCS: 71045; 87430

== ENCOUNTER 2021-01-03 15:53 | Emergency (ER) | payer MEDICAID ==
[~2021-01-03 15:53] MED LIST changes: +AZIT250T12 PO
[2021-01-03] MEDS ORDERED: NS IV 1000 ML 1,000 ML IV STA (16:14)
[2021-01-03] MEDS ORDERED: ONDANSETRON 4 MG/2 ML (SDV) Z0FRAN IVP STA (16:14)
[2021-01-03] MEDS ORDERED: PANTOPRAZOLE 40 MG (PROTONIX) VIAL IV STA (16:14)
[2021-01-03] MEDS ORDERED: KETOROLAC 30 MG/ML VIAL IVP STA (16:14)
[2021-01-03] MEDS ORDERED: ORPHENADRINE 60 MG/2 ML (NORFLEX) AMP (ED ONLY) IVP STA (16:14)
--- NOTE | 2021-01-03 16:36 | ED General ---
General Chief Complaint: Cardiac/General Problems Stated Complaint: HIGH BP | VOMITING | TINGLING LEFT ARM | FATIGUE Nursing Triage Note: Started vomiting yesterday and felt pressure in sinuses and had headache. Went to urgent care and bp was 180/120. Also having tingling in left arm and blurry vision. Was sent to ED for further eval. Nursing Sepsis Screen: No Definite Risk Source of Information: Patient, Old Records History of Present Illness Date Seen by Provider: January 03, 2021 Time Seen by Provider: 15:58 Initial Comments 35-year-old male presenting with complaints of headache and sinus pressure as well as nausea, vomiting and chest pain. He states this started yesterday morning when he woke up. He has continued to feel bad and called into work yesterday. He thought maybe it was from something he had eaten. He has had no diarrhea and no pain with urination. He denies fever or chills. This afternoon he continued to have symptoms and feel bad so he went to urgent care. The had his blood pressure greatly elevated and advised him to go to the emergency depar tment. Here his blood pressure is in the 140-150 systolic range and more consistent with his last ER visit at the end of November. He reports having some tingling in his left arm and blurred vision at times. He denies having a sore throat. He denies any ill contacts. He did not take anything at home for his symptoms. Allergies and Home Medications Allergies Coded Allergies: latex (Unverified Allergy, Unknown, 07/31/19) SWELLING sulfamethoxazole (Unverified Allergy, Unknown, HIVES, 07/31/19) tetrahydrozoline (Verified Allergy, Unknown, 09/01/19) trimethoprim (Unverified Allergy, Unknown, HIVES, 07/31/19) Uncoded Allergies: PAPER TAPE (Allergy, Mild, RASH, 11/18/08) Home Medications Albuterol Sulfate 1 Puff Puff, 2 PUFF INH Q4H, (Reported) 1 PUFF = 90 MCG Azithromycin 250 Mg Tablet, 250 MG PO DAILY Prescribed by: SHIRLEY MEJIA on 12/13/202099 Cyclobenzaprine HCl 10 Mg Tablet, 10 MG PO BID, (Reported) Divalproex Sodium 500 Mg Tablet.dr, 500 MG PO BID, (Reported) Hydrocodone Bit/Acetaminophen 1 Tab Tab, 1 TAB PO Q6H PRN for PAIN-MODERATE Prescribed by: GLENNA BLOUNT on 09/03/19 1143 Ondansetron 4 Mg Tab.rapdis, 4 MG PO Q6H PRN for NAUSEA/VOMITING Prescribed by: SHIRLEY MEJIA on 01/03/21 1756 Risperidone 2 Mg Tablet, 2 MG PO BID, (Reported) Patient Home Medication List Home Medication List Reviewed: Yes Review of Systems Review of Systems Constitutional: No chills, No diaphoresis, No fever; malaise EENTM: blurred vision (intermittent), other (frontal/maxillary sinus pressure); No ear pain, No epistaxis, No nose congestion Respiratory: no symptoms reported Cardiovascular: see HPI Gastrointestinal: see HPI; No diarrhea; nausea, vomiting Genitourinary: no symptoms reported Musculoskeletal: no symptoms reported Skin: No rash Psychiatric/Neurological: Tingling (left arm at times) Hematologic/Lymphatic: Denies Easy Bleeding, Denies Easy Bruising Past Kzogwdt-Tuxplo-Ydsvis Hx Past Med/Social Hx: Reviewed Nursing Past Med/Soc Hx Patient Social History Alcohol Use: Occasionally Uses Number of Drinks Today: AA Alcohol Beverage of Choice: Beer Smoking Status: Current Everyday Smoker Type Used: Cigarettes 2nd Hand Smoke Exposure: Yes Recent Infectious Disease Expo: No Recent Hopitalizations: No Immunizations Up To Date Date of Influenza Vaccine: May 20, 2012 Seasonal Allergies Seasonal Allergies: No Past Medical History Surgeries: Yes (cyst removed from thyroid x2, lipoma removed) Appendectomy, Gallbladder, Thyroidectomy Respiratory: Yes COPD Cardiac: No Neurological: Yes Seizure Disorder Genitourinary: No Gastrointestinal: Yes Abdominal Hernia Musculoskeletal: Yes Fibromyalgia Endocrine: No HEENT: No Cancer: No Psychosocial: Yes Schizophrenia Integumentary: No Blood Disorders: No Physical Exam Vital Signs Vital Signs - First Documented 01/03/21 15:58 Temp 36.9 Pulse 100 Resp 16 B/P (MAP) 141/89 (106) Pulse Ox 95 Capillary Refill : Less Than 3 Seconds Height, Weight, BMI Height: '" Weight: lbs. oz. kg; 28.54 BMI Method: General Appearance: No Apparent Distress, WD/WN HEENT: PERRL/EOMI, Pharynx Normal, Other (tender to palpation over maxillary and frontal sinuses) Neck: Full Range of Motion, Normal Inspection, Non Tender, Supple Respiratory: Chest Non Tender, Lungs Clear, Normal Breath Sounds, No Accessory Muscle Use, No Respiratory Distress Cardiovascular: Regular Rate, Rhythm, Normal Peripheral Pulses Gastrointestinal: Normal Bowel Sounds, No Pulsatile Mass, Non Tender, Soft Rectal: Deferred Extremity: Normal Capillary Refill, Non Tender, No Calf Tenderness, No Pedal Edema Neurologic/Psychiatric: Alert, Oriented x3, No Motor/Sensory Deficits, 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 Skin: Normal Color, Warm/Dry; No Rash Progress/Results/Core Measures Suspected Sepsis Recent Fever Within 48 Hours: No Infection Criteria Present: None New/Unexplained Altered Menta: No Sepsis Screen: No Definite Risk SIRS Temperature: Pulse: 100 Respiratory Rate: 16 Laboratory Tests 01/03/21 16:24: White Blood Count 7.5 Blood Pressure 141 /89 Mean: 106 Laboratory Tests 01/03/21 16:24: Creatinine 1.00, INR Comment 0.9, Platelet Count 223, Total Bilirubin 0.4 Results/Orders Lab Results Laboratory Tests Test 01/03/21 16:24 Range/Units White Blood Count 7.5 4.3-11.0 10^3/uL Red Blood Count 5.52 4.35-5.85 10^6/uL Hemoglobin 15.7 13.3-17.7 G/DL Hematocrit 47 40-54 % Mean Corpuscular Volume 85 80-99 FL Mean Corpuscular Hemoglobin 28 25-34 PG Mean Corpuscular Hemoglobin Concent 34 32-36 G/DL Red Cell Distribution Width 13.4 10.0-14.5 % Platelet Count 223 130-400 10^3/uL Mean Platelet Volume 11.2 H 7.4-10.4 FL Immature Granulocyte % (Auto) 0 % Neutrophils (%) (Auto) 49 42-75 % Lymphocytes (%) (Auto) 41 12-44 % Monocytes (%) (Auto) 9 0-12 % Eosinophils (%) (Auto) 1 0-10 % Basophils (%) (Auto) 1 0-10 % Neutrophils # (Auto) 3.6 1.8-7.8 X 10^3 Lymphocytes # (Auto) 3.0 1.0-4.0 X 10^3 Monocytes # (Auto) 0.7 0.0-1.0 X 10^3 Eosinophils # (Auto) 0.1 0.0-0.3 10^3/uL Basophils # (Auto) 0.0 0.0-0.1 10^3/uL Immature Granulocyte # (Auto) 0.0 0.0-0.1 10^3/uL Percent Immature Platelet Fraction 6.7 0.0-7.6 % Prothrombin Time 12.7 12.2-14.7 SEC INR Comment 0.9 0.8-1.4 Activated Partial Thromboplast Time 26 24-35 SEC Sodium Level 141 135-145 MMOL/L Potassium Level 4.0 3.6-5.0 MMOL/L Chloride Level 107 98-107 MMOL/L Carbon Dioxide Level 25 21-32 MMOL/L Anion Gap 9 5-14 MMOL/L Blood Urea Nitrogen 16 7-18 MG/DL Creatinine 1.00 0.60-1.30 MG/DL Estimat Glomerular Filtration Rate > 60 BUN/Creatinine Ratio 16 Glucose Level 101 70-105 MG/DL Calcium Level 9.1 8.5-10.1 MG/DL Corrected Calcium 9.0 8.5-10.1 MG/DL Magnesium Level 1.8 1.6-2.4 MG/DL Total Bilirubin 0.4 0.1-1.0 MG/DL Aspartate Amino Transf (AST/SGOT) 24 5-34 U/L Alanine Aminotransferase (ALT/SGPT) 53 0-55 U/L Alkaline Phosphatase 72 40-136 U/L Troponin I < 0.30 <0.30 NG/ML Pro-B-Type Natriuretic Peptide 59.7 <75.0 PG/ML Total Protein 7.0 6.4-8.2 GM/DL Albumin 4.1 3.2-4.5 GM/DL Lipase 26 8-78 U/L My Orders Orders - SHIRLEY MEJIA MD Cbc With Automated Diff (01/03/21 16:14) Magnesium (01/03/21 16:14) Chest 1 View Ap/Pa Only (01/03/21 16:14) Ekg Tracing (01/03/21 16:14) Comprehensive Metabolic Panel (01/03/21 16:14) Protime With Inr (01/03/21 16:14) Partial Thromboplastin Time (01/03/21 16:14) O2 (01/03/21 16:14) Monitor-Rhythm Ecg Trace Only (01/03/21 16:14) Ed Iv/Invasive Line Start (01/03/21 16:14) Lipase (01/03/21 16:14) Troponin I Fs (01/03/21 16:14) Probnp Fs (01/03/21 16:14) Ct Head Wo (01/03/21 16:14) Ns Iv 1000 Ml (Sodium Chloride 0.9%) (01/03/21 16:14) Ondansetron Injection (Zofran Injectio (01/03/21 16:14) Ketorolac Injection (Toradol Injection) (01/03/21 16:14) Pantoprazole Injection (Protonix Injecti (01/03/21 16:14) Orphenadrine Inj (Ed Only) (Norflex Inje (01/03/21 16:14) Vital Signs/I&O 01/03/21 01/03/21 15:58 18:01 Temp 36.9 Pulse 100 76 Resp 16 16 B/P (MAP) 141/89 (106) 122/68 Pulse Ox 95 95 01/04/21 00:00 Intake Total 1000 ml Balance 1000 ml Capillary Refill : Less Than 3 Seconds Blood Pressure Mean: 106 Progress Note #1: Progress Note Check labs as well as electrolytes and urinalysis. CT of his head to look for acute abnormality to be contributing to his headache and sinus pressure. Chest x-ray for his chest pains and tingling in his left arm. Try treating with fluids for hydration, Toradol for pain, Zofran for nausea Differential diagnosis includes sinusitis, untreated hypertension, gastroenteritis, anxiety, pneumonia Progress Note #2: Progress Note Labs are all stable without acute significant abnormality. His CT scan showed a small lipoma in the scalp. He had no acute intracranial process. His cardiac enzymes and test were negative. He had improved symptoms after treatment in the ED and his blood pressure came down to 122/72. Counseled on follow-up and retur n precautions. Advised to use nausea medicine if needed and check with establishing through the clinic with the primary provider as he may need to be on low-dose blood pressure medication ECG Initial ECG Impression Date: January 03, 2021 Initial ECG Impression Time: 16:26 Initial ECG Rate: 96 Initial ECG Rhythm: Normal Sinus Initial ECG Comparisson: No Previous ECG Available Comment Normal sinus rhythm with a heart rate of 96 bpm. ME interval [address] elevation. QT interval 330 ms with a QTc interval 417 ms. There is no prior tracing immediately available for comparison. Diagnostic Imaging Diagonstic Imaging: Xray Plain Films/CT/US/NM/MRI: chest Comments [facility] [place], [place] NAME: LUPE MATHUR [facility] REC#: [id number] PT STATUS: REG ER : 1985 PHYSICIAN: SHIRLEY MEJIA MD ADMIT DATE: 01/03/21/ER FS Signed Date of Exam:01/03/21 CHEST 1 VIEW AP/PA ONLY INDICATION: Chest pain Portable chest 4:51 PM Heart size and pulmonary vascularity are normal. Lungs are clear. There are no effusions or pneumothoraces. IMPRESSION: Negative chest Dictated by: Dictated on workstation # [id number] Dict: 01/03/21 1651 Trans: 01/03/211737 ROB [id number] Interpreted by: HERMINIA SU MD Electronically signed by: HERMINIA SU MD 01/03/21 1738 Diagonstic Imaging: CT Plain Films/CT/US/NM/MRI: head Comments [facility]. [place], [place] NAME: LUPE MATHUR [facility] REC#: [id number] PT STATUS: DEP ER : 1985 PHYSICIAN: SHIRLEY MEJIA MD ADMIT DATE: 01/03/21/ER FS Signed Date of Exam:01/03/21 CT HEAD WO PROCEDURE: CT head without contrast. TECHNIQUE: Multiple contiguous axial images were obtained through the brain without the use of intravenous contrast. Auto Exposure Controls were utilized during the CT exam to meet ALARA standards for radiation dose reduction. DATE: January 03, 2021. COMPARISON: November 18, 2008. INDICATION: 35-year-old male, headache, sinus pressure, dizziness, blurred vision. Symptoms for 2 days. FINDINGS: There is a benign lipoma in the right parietal scalp on axial image 22 measuring up to 11 mm in size. The ventricles and cerebral spinal fluid spaces are of normal size and configuration for the patient's age. There is no mass effect or midline shift. There is no acute intracranial hemorrhage. There is no abnormal extra-axial fluid collection. The visualized portions of the paranasal sinuses, mastoid air cells and middle ears are well aerated. IMPRESSION: 1. No identified acute intracranial abnormality. Dictated by: Dictated on workstation # [id number] Dict: 01/03/21 1657 Trans: 01/03/211825 CV [id number] Interpreted by: DC REMY MD Electronically signed by: DC REMY MD 01/03/211825 Departure Impression Primary Impression: Headache Qualified Codes: R51.9 - Headache, unspecified Additional Impressions: Nausea & vomiting Qualified Codes: R11.14 - Bilious vomiting Lipoma of scalp Hypertension Qualified Codes: I10 - Essential (primary) hypertension Disposition: HOME, SELF-CARE Condition: Improved Departure-Patient Inst. Decision time for Depature: 17:56 Referrals: NO,LOCAL PHYSICIAN (PCP) Primary Care Physician [facility] Patient Instructions: Lipoma , Nausea and Vomiting, Adult ED, Headache, Adult ED, DASH Diet, High Blood Pressure (DC) Add. Discharge Instructions: Establish care with provider from [facility] clinic or provider of your choice. [facility] can be called at [phone] to establish care and set up appointment with provider. Follow a liquid diet for 24 hours then advance to bland then regular as you tolerate over the next few days. If you have continued headaches or pain in back of your head and neck you may need to see a surgeon again about the Lipoma (fatty growth of tissue) under the skin of the scalp All discharge instructions reviewed with patient and/or family. Voiced understanding. Scripts Ondansetron (Ondansetron Odt) 4 Mg Tab.rapdis 4 MG PO Q6H PRN for NAUSEA/VOMITING for 2 Days, #8 TAB 0 Refills Prov: SHIRLEY MEJIA MD 01/03/21 SHIRLEY MEJIA MD January 03, 2021 16:36
[2021-01-03 16:40] LABS: BASOPHILS % (AUTO) 1 % (0-10); HEMATOCRIT 47 % (40-54); HEMOGLOBIN 15.7 G/DL (13.3-17.7); LYMPHOCYTES % (AUTO) 41 % (12-44); MEAN CORPUSCULAR HEMOGLOBIN 28 PG (25-34); MEAN CORPUSCULAR HGB CONC 34 G/DL (32-36); MEAN CORPUSCULAR VOLUME 85 FL (80-99); MEAN PLATELET VOLUME 11.2 FL (7.4-10.4); MONOCYTES % (AUTO) 9 % (0-12); NEUTROPHILS % (AUTO) 49 % (42-75); PLATELET COUNT 223 10^3/uL (130-400); WHITE BLOOD COUNT 7.5 10^3/uL (4.3-11.0)
[2021-01-03 16:41] LABS: EOSINOPHILS # (AUTO) 0.1 10^3/uL (0.0-0.3); EOSINOPHILS % (AUTO) 1 % (0-10); MONOCYTES # (AUTO) 0.7 X 10^3 (0.0-1.0); NEUTROPHILS # (AUTO) 3.6 X 10^3 (1.8-7.8)
[2021-01-03 16:49] LABS: INR 0.9 (0.8-1.4); PROTHROMBIN TIME PATIENT 12.7 SEC (12.2-14.7)
--- NOTE | 2021-01-03 16:53 | Diagnostic Imaging Report ---
INDICATION: Chest pain Portable chest 4:51 PM Heart size and pulmonary vascularity are normal. Lungs are clear. There are no effusions or pneumothoraces. IMPRESSION: Negative chest Dictated by: Dictated on workstation # [id number]
--- NOTE | 2021-01-03 17:00 | Diagnostic Imaging Report ---
PROCEDURE: CT head without contrast. TECHNIQUE: Multiple contiguous axial images were obtained through the brain without the use of intravenous contrast. Auto Exposure Controls were utilized during the CT exam to meet ALARA standards for radiation dose reduction. DATE: January 03, 2021. COMPARISON: November 18, 2008. INDICATION: 35-year-old male, headache, sinus pressure, dizziness, blurred vision. Symptoms for 2 days. FINDINGS: There is a benign lipoma in the right parietal scalp on axial image 22 measuring up to 11 mm in size. The ventricles and cerebral spinal fluid spaces are of normal size and configuration for the patient's age. There is no mass effect or midline shift. There is no acute intracranial hemorrhage. There is no abnormal extra-axial fluid collection. The visualized portions of the paranasal sinuses, mastoid air cells and middle ears are well aerated. IMPRESSION: 1. No identified acute intracranial abnormality. Dictated by: Dictated on workstation # [id number]
[2021-01-03 17:07] LABS: ALANINE AMINOTRANSFERASE 53 U/L (0-55); ALKALINE PHOSPHATASE 72 U/L (40-136); BILIRUBIN,TOTAL 0.4 MG/DL (0.1-1.0); BUN/CREATININE RATIO 16; CALCIUM 9.1 MG/DL (8.5-10.1); CARBON DIOXIDE 25 MMOL/L (21-32); CHLORIDE 107 MMOL/L (98-107); GFR ESTIMATED > 60; GLUCOSE 101 MG/DL (70-105); MAGNESIUM 1.8 MG/DL (1.6-2.4); SODIUM 141 MMOL/L (135-145)
[2021-01-03 17:08] LABS: ALBUMIN 4.1 GM/DL (3.2-4.5); LIPASE 26 U/L (8-78)
[2021-01-03] MEDS ORDERED: ONDA4TAB11 PO (17:56)
[2021-01-03 18:01] VITALS: BP 122/68
== END 2021-01-03 18:00 | disposition home or self-care (01) ==
LOC: EDUNIT# 15:53 → ER FS 15:55
DX: I10 Essential (primary) hypertension (principal); D17.0 Benign lipomatous neoplasm of skin and subcutaneous tissue of head, face and neck; R11.2 Nausea with vomiting, unspecified; J44.9 Chronic obstructive pulmonary disease, unspecified; F20.9 Schizophrenia, unspecified; M79.7 Fibromyalgia; F17.210 Nicotine dependence, cigarettes, uncomplicated; Z79.899 Other long term (current) drug therapy; Z91.040 Latex allergy status; Z88.2 Allergy status to sulfonamides; Z88.1 Allergy status to other antibiotic agents; Z88.8 Allergy status to other drugs, medicaments and biological substances
CPT/HCPCS: 36415; 70450; 71045; 80053; 83690; 83735; 83880; 84484; 85025; 85610; 85730; 93005; 93041

== ENCOUNTER 2021-01-06 17:08 | Emergency (ER) | payer MEDICAID ==
[~2021-01-06] VITALS: Ht 182 cm; Wt 105.0 kg
[~2021-01-06 17:08] MED LIST changes: +ONDA4TAB11 PO
[2021-01-06 17:11] VITALS: BP 131/93
[2021-01-06] MEDS ORDERED: RT-ALBUINH IH (17:40)
[2021-01-06] MEDS ORDERED: PRD50T PO (17:40)
--- NOTE | 2021-01-06 17:40 | ED General ---
General Chief Complaint: General Problems/Pain Stated Complaint: CHEST PAIN Nursing Triage Note: SMOKERS COUGH, SHORTNESS OF BREATH FOR A COUPLE OF DAYS AND CHEST HURTS OFF AND ON. Nursing Sepsis Screen: No Definite Risk History of Present Illness Date Seen by Provider: January 06, 2021 Time Seen by Provider: 17:18 Initial Comments 35-year-old male presents with complaint of intermittent shortness of air for the past 1 week. History of similar symptoms in the past, he is a smoker for the past nearly 31 years and was smoking 2 packs/day until recently. Past medical history significant for COPD, although he is not followed by any physician for several years. Seen in this ER on Sunday of this week and received a chest x-ray and work-up. Recently started on lisinopril 10 mg for blood pressure. Denies any fever or chills, productive cough or wheezing. Has used inhalers in the past, but not for several years. Denies any abdominal pain, swollen extremities, palpitations Allergies and Home Medications Allergies Coded Allergies: latex (Unverified Allergy, Unknown, 07/31/19) SWELLING sulfamethoxazole (Unverified Allergy, Unknown, HIVES, 07/31/19) tetrahydrozoline (Verified Allergy, Unknown, 09/01/19) trimethoprim (Unverified Allergy, Unknown, HIVES, 07/31/19) Uncoded Allergies: PAPER TAPE (Allergy, Mild, RASH, 11/18/08) Home Medications Albuterol Sulfate 1 Puff Puff, 2 PUFF INH Q4H, (Reported) 1 PUFF = 90 MCG Albuterol Sulfate 1 Puff Puff, 2 PUFF IH Q4H 1 PUFF = 90 MCG Prescribed by: HAILEY BRYANT on 01/06/21 1740 Azithromycin 250 Mg Tablet, 250 MG PO DAILY Prescribed by: SHIRLEY MEJIA on 12/13/20 2100 Cyclobenzaprine HCl 10 Mg Tablet, 10 MG PO BID, (Reported) Divalproex Sodium 500 Mg Tablet.dr, 500 MG PO BID, (Reported) Hydrocodone Bit/Acetaminophen 1 Tab Tab, 1 TAB PO Q6H PRN for PAIN-MODERATE Prescribed by: GLENNA BLOUNT on 09/03/19 1143 Ondansetron 4 Mg Tab.rapdis, 4 MG PO Q6H PRN for NAUSEA/VOMITING Prescribed by: SHIRLEY MEJIA on 01/03/21 175 Prednisone 50 Mg Tab, 50 MG PO DAILY Prescribed by: HAILEY BRYANT on 01/06/21 1740 Risperidone 2 Mg Tablet, 2 MG PO BID, (Reported) Patient Home Medication List Home Medication List Reviewed: Yes Review of Systems Review of Systems Constitutional: see HPI; No fever, No malaise, No weakness EENTM: no symptoms reported Respiratory: No cough, No hemoptysis, No orthopnea, No phlegm; short of breath; No stridor, No wheezing Cardiovascular: No chest pain, No edema, No palpitations Gastrointestinal: No abdominal pain, No nausea, No vomiting Genitourinary: No dysuria, No frequency, No hematuria Musculoskeletal: No back pain, No joint pain Past Clfkwyo-Bvrmct-Shbesd Hx Past Med/Social Hx: Reviewed Nursing Past Med/Soc Hx Patient Social History Alcohol Use: Past History Number of Drinks Today: AA Alcohol Beverage of Choice: Beer Smoking Status: Current Everyday Smoker Type Used: Cigarettes 2nd Hand Smoke Exposure: Yes Recent Infectious Disease Expo: No Recent Hopitalizations: No Immunizations Up To Date Date of Influenza Vaccine: May 20, 2012 Seasonal Allergies Seasonal Allergies: No Past Medical History Surgeries: Yes (cyst removed from thyroid x2, lipoma removed) Appendectomy, Gallbladder, Thyroidectomy Respiratory: Yes COPD Cardiac: No Neurological: Yes Seizure Disorder Genitourinary: No Gastrointestinal: Yes Abdominal Hernia Musculoskeletal: Yes Fibromyalgia Endocrine: No HEENT: No Cancer: No Psychosocial: Yes Schizophrenia Integumentary: No Blood Disorders: No Physical Exam Vital Signs Vital Signs - First Documented 01/06/21 17:11 Temp 36.5 Pulse 117 Resp 20 B/P (MAP) 131/93 (106) Pulse Ox 98 O2 Delivery Room Air Capillary Refill : Less Than 3 Seconds Height, Weight, BMI Height: '" Weight: lbs. oz. kg; 31.00 BMI Method: General Appearance: No Apparent Distress, WD/WN HEENT: PERRL/EOMI, Normal ENT Inspection Neck: Full Range of Motion, Normal Inspection, Non Tender Respiratory: Chest Non Tender, Lungs Clear, Normal Breath Sounds, No Accessory Muscle Use, No Respiratory Distress Cardiovascular: Regular Rate, Rhythm, No Edema, No Gallop, No JVD Gastrointestinal: Normal Bowel Sounds, Non Tender, Soft Back: Normal Inspection, No CVA Tenderness Extremity: Normal Capillary Refill, Normal Inspection, Non Tender Neurologic/Psychiatric: Alert, Oriented x3, No Motor/Sensory Deficits, Normal Mood/Affect Skin: Normal Color, Warm/Dry Progress/Results/Core Measures Suspected Sepsis Recent Fever Within 48 Hours: No Infection Criteria Present: None New/Unexplained Altered Menta: No Sepsis Screen: No Definite Risk SIRS Temperature: Pulse: 117 Respiratory Rate: 20 Blood Pressure 131 /93 Mean: 106 Results/Orders Vital Signs/I&O 01/06/21 17:11 Temp 36.5 Pulse 117 Resp 20 B/P (MAP) 131/93 (106) Pulse Ox 98 O2 Delivery Room Air Capillary Refill : Less Than 3 Seconds Blood Pressure Mean: 106 Progress Note : Progress Note Strongly encourage patient to establish a primary care physician and commended him for recently seen someone in the [facility] and starting blood pressure medication. Discussed smoking cessation and setting some goals for continuing to cut down on his nicotine addiction trying to encourage his success. Advise follow-up if symptoms progress or not improving in 1 week. Departure Impression Primary Impression: COPD (chronic obstructive pulmonary disease) Qualified Codes: J44.9 - Chronic obstructive pulmonary disease, unspecified Disposition: 01 HOME, SELF-CARE Condition: Stable Departure-Patient Inst. Decision time for Depature: 17:39 Referrals: NO,LOCAL PHYSICIAN (PCP/Family) Primary Care Physician Patient Instructions: COPD Exacerbation, Adult ED Add. Discharge Instructions: Follow-up with your primary care provider in 1 week All discharge instructions reviewed with patient and/or family. Voiced understanding. Scripts Prednisone (Prednisone) 50 Mg Tab 50 MG PO DAILY, #7 TAB Prov: HAILEY BRYANT DO 01/06/21 Albuterol Sulfate (PROAIR HFA) 1 Puff Puff 2 PUFF IH Q4H for Cough, #1 PUFF 1 Refill 1 PUFF = 90 MCG Prov: HAILEY BRYANT DO 01/06/21 Work/School Note: Work Release Form Date Seen in the Emergency Department: January 06, 2021 Return to Work: January 07, 2021 Restrictions: No Restrictions HAILEY BRYANT DO January 06, 2021 17:40
== END 2021-01-06 17:41 | disposition home or self-care (01) ==
LOC: EDUNIT# 17:08 → ER FS 17:09
DX: J44.9 Chronic obstructive pulmonary disease, unspecified (principal); G40.909 Epilepsy, unspecified, not intractable, without status epilepticus; M79.7 Fibromyalgia; F20.9 Schizophrenia, unspecified; F17.210 Nicotine dependence, cigarettes, uncomplicated; Z71.6 Tobacco abuse counseling; Z79.899 Other long term (current) drug therapy
CPT/HCPCS: 99281

== ENCOUNTER 2021-02-03 00:51 | Emergency (ER) | payer MEDICAID ==
[~2021-02-03 00:51] MED LIST changes: +PRD50T PO; +RT-ALBUINH IH
--- NOTE | 2021-02-03 01:06 | ED Abdominal Pain ---
General Stated Complaint: ABD SWELLING,RT SIDE PAIN Source of Information: Patient Exam Limitations: No Limitations History of Present Illness Date Seen by Provider: Feb 03, 2021 Time Seen by Provider: 00:52 Initial Comments Patient to the ER with chief complaint of right-sided abdominal pain just right of the umbilicus. 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 He has had gallbladder and appendectomy out. He says he got home from work and was lifting something heavy and felt a popping sensation and then had sharp pain ever since. This happened just prior to coming in here. He has not take anything for it. He is been passing bowel movements normally and passing gas normally. No nausea vomiting fever chills dysuria. Allergies and Home Medications Allergies Coded Allergies: latex (Unverified Allergy, Unknown, 07/31/19) SWELLING sulfamethoxazole (Unverified Allergy, Unknown, HIVES, 07/31/19) tetrahydrozoline (Verified Allergy, Unknown, 09/01/19) trimethoprim (Unverified Allergy, Unknown, HIVES, 07/31/19) Uncoded Allergies: PAPER TAPE (Allergy, Mild, RASH, 11/18/08) Home Medications Albuterol Sulfate 1 Puff Puff, 2 PUFF INH Q4H, (Reported) 1 PUFF = 90 MCG Albuterol Sulfate 1 Puff Puff, 2 PUFF IH Q4H 1 PUFF = 90 MCG Prescribed by: HAILEY BRYANT on 01/06/21 174 Azithromycin 250 Mg Tablet, 250 MG PO DAILY Prescribed by: SHIRLEY MEJIA on 12/13/20 2100 Cyclobenzaprine HCl 10 Mg Tablet, 10 MG PO BID, (Reported) Divalproex Sodium 500 Mg Tablet.dr, 500 MG PO BID, (Reported) Hydrocodone Bit/Acetaminophen 1 Tab Tab, 1 TAB PO Q6H PRN for PAIN-MODERATE Prescribed by: GLENNA BLOUNT on 09/03/19 1143 Ondansetron 4 Mg Tab.rapdis, 4 MG PO Q6H PRN for NAUSEA/VOMITING Prescribed by: SHIRLEY MEJIA on 01/03/21 1756 Prednisone 50 Mg Tab, 50 MG PO DAILY Prescribed by: HAILEY BRYANT on 01/06/21 174 Risperidone 2 Mg Tablet, 2 MG PO BID, (Reported) Patient Home Medication List Home Medication List Reviewed: Yes Review of Systems Review of Systems Constitutional: No chills, No diaphoresis EENTM: No Blurred Vision, No Double Vision Respiratory: Denies Cough, Denies Shortness of Air Cardiovascular: Denies Chest Pain, Denies Lightheadedness Gastrointestinal: See HPI, Abdominal Pain; Denies Constipated, Denies Diarrhea, Denies Nausea Genitourinary: Denies Discharge All Other Systems Reviewed Negative Unless Noted: Yes Past Xphrzpp-Mtzfwh-Hngseb Hx Patient Social History Alcohol Use: Occasionally Uses Alcohol Beverage of Choice: Beer Smoking Status: Current Everyday Smoker Type Used: Cigarettes 2nd Hand Smoke Exposure: Yes Recent Hopitalizations: No Immunizations Up To Date Date of Influenza Vaccine: May 20, 2012 Seasonal Allergies Seasonal Allergies: No Past Medical History Surgeries: Yes (cyst removed from thyroid x2, lipoma removed) Appendectomy, Gallbladder, Thyroidectomy Respiratory: Yes COPD Cardiac: No Neurological: Yes Seizure Disorder Genitourinary: No Gastrointestinal: Yes Abdominal Hernia Musculoskeletal: Yes Fibromyalgia Endocrine: No HEENT: No Cancer: No Psychosocial: Yes Schizophrenia Integumentary: No Blood Disorders: No Physical Exam Vital Signs Capillary Refill : Height/Weight/BMI Height: '" Weight: lbs. oz. kg; 31.00 BMI Method: General Appearance: WD/WN HEENT: PERRL/EOMI, pharynx normal Neck: full range of motion, normal inspection Respiratory: no respiratory distress, no accessory muscle use Cardiovascular: normal peripheral pulses, regular rate, rhythm Gastrointestinal: normal bowel sounds, soft, tenderness (Mild tenderness right of the umbilicus without hernial defect, fluctuance induration or erythema palpable.) Extremities: normal range of motion, normal inspection, normal capillary refill Neurologic/Psychiatric: alert, normal mood/affect, oriented x 3 Progress/Results/Core Measures Progress Progress Note : Time: 01:07 Progress Note Bedside ultrasound was not able to ascertain any hernia defect. Suspect he had adhesion that had popped from his lifting associated with his hernia mesh. Dr. Lackey was responsible for the original surgery so if it persists we will have him follow-up with him in the clinic or return precautions of the pains intractable here. Departure Impression Primary Impression: Adhesion of abdominal wall Additional Impression: Abdominal wall pain in periumbilical region Disposition: 01 HOME, SELF-CARE Condition: Stable Departure-Patient Inst. Decision time for Depature: 01:09 Referrals: GLENNA BLOUNT DO NO,LOCAL PHYSICIAN (PCP) Primary Care Physician Patient Instructions: Lysis of Adhesions (DC) Add. Discharge Instructions: You do not need to specifically do anything for the pain other than Tylenol 1000 mg every 8 hours necessary. Ibuprofen 800 mg every 8 hours as necessary for pain and warm heating pads. Should resolve on its own over the next few days. If it persists for more than a week or you start to have more problems then you should call Dr. Blount and follow-up in the clinic. If you are unable to pass gas or stools after having severe pain not responding to Tylenol, ibuprofen and heating pads then you may return to the nearest ER for further evaluation. Copy Copies To 1: GLENNA BLOUNT DO JOHNY MORALES Feb 03, 2021 01:06
[2021-02-03 01:18] VITALS: BP 161/97
== END 2021-02-03 01:20 | disposition home or self-care (01) ==
LOC: EDUNIT# 00:51 → ER FS 00:52
DX: K66.0 Peritoneal adhesions (postprocedural) (postinfection) (principal); J44.9 Chronic obstructive pulmonary disease, unspecified; F20.9 Schizophrenia, unspecified; F17.210 Nicotine dependence, cigarettes, uncomplicated; Z79.52 Long term (current) use of systemic steroids; Z79.899 Other long term (current) drug therapy
CPT/HCPCS: 99282

== ENCOUNTER 2021-11-13 12:05 | Emergency (ER) | payer MEDICAID ==
[~2021-11-13] VITALS: Ht 180 cm; Wt 116.0 kg
[~2021-11-13 12:05] MED LIST changes: +CYCL10TA25 PO; -CYCL10TA9 PO
--- NOTE | 2021-11-13 12:09 | ED Back Pain ---
General Chief Complaint: Back Problems Stated Complaint: FELL-LOWER BACK PAIN History of Present Illness Date Seen by Provider: Nov 13, 2021 Time Seen by Provider: 12:08 Initial Comments 36-year-old male with PMH of fibromyalgia, is here with complaints of lower back pain and right-sided hip pain after a fall down a couple of steps inside his house last night. There was a water spill on the steps and that is what caused him to slip and fall. Patient has pain in his lower back and pain and bruising in his right hip. Patient was able to walk into the ER without much difficulty. Pt took ibuprofen earlier in the morning. Denies head strike, LOC, sensory loss. Allergies and Home Medications Allergies Coded Allergies: latex (Unverified Allergy, Unknown, 07/31/19) SWELLING sulfamethoxazole (Unverified Allergy, Unknown, HIVES, 07/31/19) tetrahydrozoline (Verified Allergy, Unknown, 09/01/19) trimethoprim (Unverified Allergy, Unknown, HIVES, 07/31/19) Uncoded Allergies: PAPER TAPE (Allergy, Mild, RASH, 11/18/08) Patient Home Medication List Home Medication List Reviewed: Yes Albuterol Sulfate (Ventolin Hfa) 1 Puff Puff, 2 PUFF INH Q4H, (Reported) Entered as Reported by: NAILA CUELLAR on 09/03/19 0937 Albuterol Sulfate (Proair Hfa) 1 Puff Puff, 2 PUFF IH Q4H Prescribed by: HAILEY BRYANT on 01/06/21 1740 Azithromycin (Azithromycin) 250 Mg Tablet, 250 MG PO DAILY Prescribed by: SHIRLEY MEJIA on 12/13/20 2100 Cyclobenzaprine HCl (Cyclobenzaprine HCl) 10 Mg Tablet, 10 MG PO BID, (Reported) Entered as Reported by: JOSE RODRIGEZ on 07/30/19 09 Divalproex Sodium (Divalproex Sodium) 500 Mg Tablet.dr, 500 MG PO BID, (Reported) Entered as Reported by: JOSE RODRIGEZ on 07/30/19 09 Hydrocodone Bit/Acetaminophen (Lortab 5 Mg Tablet) 1 Tab Tab, 1 TAB PO Q6H PRN for PAIN-MODERATE Prescribed by: GLENNA BLOUNT on 09/03/19 1143 Ondansetron (Ondansetron Odt) 4 Mg Tab.rapdis, 4 MG PO Q6H PRN for NAUSEA/VOMITING Prescribed by: SHIRLEY MEJIA on 01/03/21 175 Prednisone (Prednisone) 50 Mg Tab, 50 MG PO DAILY Prescribed by: HAILEY BRYANT on 01/06/21 1740 Risperidone (Risperidone) 2 Mg Tablet, 2 MG PO BID, (Reported) Entered as Reported by: JOSE RODRIGEZ on 07/30/19 0901 Review of Systems Constitutional: no symptoms reported EENTM: no symptoms reported Respiratory: no symptoms reported Cardiovascular: no symptoms reported Gastrointestinal: no symptoms reported Genitourinary: no symptoms reported Musculoskeletal: back pain, other (hip pain) Skin: no symptoms reported Psychiatric/Neurological: No Symptoms Reported Past Auielrx-Gbvvdr-Tfkbbu Hx Seasonal Allergies Seasonal Allergies: No Past Medical History Surgeries: Yes (cyst removed from thyroid x2, lipoma removed) Appendectomy, Gallbladder, Thyroidectomy Respiratory: Yes COPD Cardiac: No Neurological: Yes Seizure Disorder Genitourinary: No Gastrointestinal: Yes Abdominal Hernia Musculoskeletal: Yes Fibromyalgia Endocrine: No HEENT: No Cancer: No Psychosocial: Yes Schizophrenia Integumentary: No Blood Disorders: No Physical Exam Vital Signs Vital Signs - First Documented 11/13/21 12:12 Temp 36.2 Pulse 108 Resp 16 B/P (MAP) 172/90 (117) Pulse Ox 98 O2 Delivery Room Air Capillary Refill : Height, Weight, BMI Height: '" Weight: lbs. oz. kg; 31.00 BMI Method: General Appearance: No Apparent Distress HEENT: PERRL/EOMI Neck: Full Range of Motion, Normal Inspection, Non Tender, Supple Respiratory: Chest Non Tender Gastrointestinal: Non Tender Back: Normal Inspection, No CVA Tenderness, No Vertebral Tenderness, Muscle Spasm, Other (right hip has bruising, full ROM of hip) Extremity: Normal Inspection, Normal Range of Motion Neurologic/Psychiatric: Alert, Oriented x3, No Motor/Sensory Deficits, Normal Mood/Affect, vaccine specialist II-XII Norm as Tested Skin: Normal Color Progress/Results/Core Measures Results/Orders My Orders Orders - YOHAN REAGAN MD Lumbar Spine 4 View Or More (11/13/21 12:13) Pelvis With Right Hip 2-3 View (11/13/21 12:13) Vital Signs/I&O 11/13/21 12:12 Temp 36.2 Pulse 108 Resp 16 B/P (MAP) 172/90 (117) Pulse Ox 98 O2 Delivery Room Air Progress Progress Note : Progress Note 1. FALL: LUMBOSACRAL STRAIN AND RIGHT HIP CONTUSION: - XR Lumbo-sacral spine & XR Right hip: no fractures. - Ice/ heat application/ Lidocaine patches OTC advised. Ibuprofen prn pain - F/u with PCP -The patient was seen in the ED, and treated appropriately to presentation at a specific point in time. Patient is informed that there is a possibility that disease and illness can evolve and change in acuity rapidly or slowly after patient is discharged from the ER. Precautionary advice given to the patient for immediate return to ER if symptoms worsen or do not resolve, and to seek emergency care sooner rather than later. Pt also advised on the importance of PCP follow up and compliance with management and follow up plan. Pt verbally expressed understanding. Diagnostic Imaging Diagonstic Imaging: Xray Plain Films/CT/US/NM/MRI: pelvis, hip, other (lumbosacral spine) Comments [facility] [place] [place] NAME: LUPE MATHUR MED REC#: [id number] PT STATUS: REG ER : 1985 PHYSICIAN: YOHAN REAGAN MD ADMIT DATE: 11/13/21/ER FS Draft Date of Exam:11/13/21 LUMBAR SPINE 4 VIEW OR MORE INDICATION: Fall, back pain TECHNIQUE: AP, Lateral and bilateral oblique imaging of the lumbar spine CORRELATION STUDY: None FINDINGS: The lumbar spinal curvature and alignment are within normal limits. Vertebral body heights are maintained. No suggestion for spondylolysis. Mild asymmetric disc space narrowing L5-S1. No fracture or malalignment. Costectomy clips are present. IMPRESSION: No radiographic evidence for acute bony abnormality of the lumbar spine. Dictated on workstation # [id number] Dict: 11/13/21 1247 Trans: 11/13/21 1248 DO [id number] Interpreted by: MARTÍN BOWERS DO Electronically signed by: [facility] [place] [place] NAME: LUPE MATHUR MED REC#: [id number] PT STATUS: REG ER : 1985 PHYSICIAN: YOHAN REAGAN MD ADMIT DATE: 11/13/21/ER FS Draft Date of Exam:11/13/21 PELVIS WITH RIGHT HIP 2-3 VIEW INDICATION: Right hip pain post fall TECHNIQUE: AP pelvis along with 2 views right hip hip, 12:20 PM CORRELATION STUDY: None FINDINGS: The pelvis demonstrates no evidence for acute fracture. The pectineal lines and obturator rings are maintained. Pubic symphysis and SI joints are unremarkable. Images of the hip demonstrate no evidence for acute fracture. Alignment is anatomic. The femoral head acetabular relationship is unremarkable. The bony trabecular pattern is intact. IMPRESSION: Negative examination of the pelvis and right hip. Dictated on workstation # [id number] Dict: 11/13/21 1248 Trans: 11/13/21 1249 DO [id number] Interpreted by: MARTÍN BOWERS DO Electronically signed by: Departure Impression Primary Impression: Lumbar strain Qualified Codes: S39.012A - Strain of muscle, fascia and tendon of lower back, initial encounter Additional Impression: Contusion of right hip, initial encounter Disposition: HOME, SELF-CARE Condition: Stable Departure-Patient Inst. Referrals: CED GUERRA MD (PCP/Family) Primary Care Physician Patient Instructions: Back Muscle Strain (DC), Radiculopathy (DC), Low Back Pain in Adults, Contusion (DC) Add. Discharge Instructions: - Ice/ heat application/ Lidocaine patches OTC advised. Ibuprofen prn pain - F/u with PCP -The patient was seen in the ED, and treated appropriately to presentation at a specific point in time. Patient is informed that there is a possibility that disease and illness can evolve and change in acuity rapidly or slowly after patient is discharged from the ER. Precautionary advice given to the patient for immediate return to ER if symptoms worsen or do not resolve, and to seek emergency care sooner rather than later. Pt also advised on the importance of P CP follow up and compliance with management and follow up plan. Pt verbally expressed understanding. All discharge instructions reviewed with patient and/or family. Voiced understanding. Work/School Note: Work Release Form Date Seen in the Emergency Department: Nov 13, 2021 Return to Work: Nov 15, 2021 Restrictions: Need Release from Doctor, Follow Up With [facility] [place] Other Restrictions Listed Below: No heavy lifting YOHAN REAGAN MD Nov 13, 2021 12:09
--- NOTE | 2021-11-13 12:48 | Diagnostic Imaging Report ---
INDICATION: Fall, back pain TECHNIQUE: AP, Lateral and bilateral oblique imaging of the lumbar spine CORRELATION STUDY: None FINDINGS: The lumbar spinal curvature and alignment are within normal limits. Vertebral body heights are maintained. No suggestion for spondylolysis. Mild asymmetric disc space narrowing L5-S1. No fracture or malalignment. Costectomy clips are present. IMPRESSION: No radiographic evidence for acute bony abnormality of the lumbar spine. Dictated by: Dictated on workstation # [id number]
--- NOTE | 2021-11-13 12:49 | Diagnostic Imaging Report ---
INDICATION: Right hip pain post fall TECHNIQUE: AP pelvis along with 2 views right hip hip, 12:20 PM CORRELATION STUDY: None FINDINGS: The pelvis demonstrates no evidence for acute fracture. The pectineal lines and obturator rings are maintained. Pubic symphysis and SI joints are unremarkable. Images of the hip demonstrate no evidence for acute fracture. Alignment is anatomic. The femoral head acetabular relationship is unremarkable. The bony trabecular pattern is intact. IMPRESSION: Negative examination of the pelvis and right hip. Dictated by: Dictated on workstation # [id number]
[2021-11-13 13:08] VITALS: BP 172/90
== END 2021-11-13 13:17 | disposition home or self-care (01) ==
LOC: EDUNIT# 12:05 → ER FS 12:06
DX: S39.012A Strain of muscle, fascia and tendon of lower back, initial encounter (principal); S70.01XA Contusion of right hip, initial encounter; Z91.040 Latex allergy status; W10.8XXA Fall (on) (from) other stairs and steps, initial encounter
CPT/HCPCS: 72110; 73502

== ENCOUNTER 2022-01-05 18:28 | Emergency (ER) | payer MEDICAID ==
[~2022-01-05] VITALS: Ht 180 cm; Wt 119.0 kg
--- NOTE | 2022-01-05 18:45 | ED Cardiac General ---
History of Present Illness General Chief Complaint: Chest Pain Stated Complaint: CHEST PAIN Source: patient Exam Limitations: no limitations History of Present Illness Date Seen by Provider: January 05, 2022 Time Seen by Provider: 18:30 Initial Comments 36-year-old male with past medical history of hypertension, schizophrenia, hypercholesterolemia coming in due to chest pain. Is been going on since roughly 8 AM yesterday so close to 36 hours. Is been constant, sharp, center of his chest. Radiates to his left arm. Has some numbness of his left arm over the past 12 hours or so. Does not really change with exertion. Its moderate in intensity. Similar to pain he had when he came here before. He denies ever having any heart attacks such as stents in his heart. Denies any prior history of DVT or PE. No recent surgery, no hemoptysis, no leg swelling, does not take any hormone therapy, and denies any recent long travel. Is otherwise denying any other acute complaints including new shortness of breath, abdominal pain, nausea, vomiting, diarrhea, weakness, headache, vision changes, dysuria, rash, or any other concerns Allergies and Home Medications Allergies Coded Allergies: latex (Unverified Allergy, Unknown, 07/31/19) SWELLING sulfamethoxazole (Unverified Allergy, Unknown, HIVES, 07/31/19) tetrahydrozoline (Verified Allergy, Unknown, 09/01/19) trimethoprim (Unverified Allergy, Unknown, HIVES, 07/31/19) Uncoded Allergies: PAPER TAPE (Allergy, Mild, RASH, 11/18/08) Patient Home Medication List Home Medication List Reviewed: Yes Albuterol Sulfate (Ventolin Hfa) 1 Puff Puff, 2 PUFF INH Q4H, (Reported) Entered as Reported by: NAILA CUELLAR on 09/03/19 0937 Albuterol Sulfate (Proair Hfa) 1 Puff Puff, 2 PUFF IH Q4H Prescribed by: HAILEY BRYANT on 01/06/21 1740 Azithromycin (Azithromycin) 250 Mg Tablet, 250 MG PO DAILY Prescribed by: SHIRLEY MEJIA on 12/13/20 2100 Cyclobenzaprine HCl (Cyclobenzaprine HCl) 10 Mg Tablet, 10 MG PO BID, (Reported) Entered as Reported by: JOSE RODRIGEZ on 07/30/19 0901 Divalproex Sodium (Divalproex Sodium) 500 Mg Tablet.dr, 500 MG PO BID, (Reported) Entered as Reported by: JOSE RODRIGEZ on 07/30/19 09 Hydrocodone Bit/Acetaminophen (Lortab 5 Mg Tablet) 1 Tab Tab, 1 TAB PO Q6H PRN for PAIN-MODERATE Prescribed by: GLENNA BLOUNT on 09/03/19 1143 Ondansetron (Ondansetron Odt) 4 Mg Tab.rapdis, 4 MG PO Q6H PRN for NAUSEA/VO MITING Prescribed by: SHIRLEY MEJIA on 01/03/21 1756 Prednisone (Prednisone) 50 Mg Tab, 50 MG PO DAILY Prescribed by: HAILEY BRYANT on 01/06/21 1740 Risperidone (Risperidone) 2 Mg Tablet, 2 MG PO BID, (Reported) Entered as Reported by: JOSE RODRIGEZ on 07/30/19900 Review of Systems Review of Systems Constitutional: No chills, No fever EENTM: No Blurred Vision Respiratory: Denies Cough, Denies Shortness of Air Cardiovascular: Chest Pain Gastrointestinal: Denies Abdominal Pain, Denies Diarrhea, Denies Nausea, Denies Vomiting Genitourinary: No Symptoms Reported Musculoskeletal: no symptoms reported Skin: no symptoms reported Psychiatric/Neurological: Numbness Endocrine: No Symptoms Reported Hematologic/Lymphatic: No Symptoms Reported All Other Systems Reviewed Negative Unless Noted: Yes Past Rykcvdw-Ipvkeh-Rdvlwi Hx Patient Social History Tobacco Use?: Yes Substance use?: No Alcohol Use?: No Seasonal Allergies Seasonal Allergies: No Past Medical History Surgery/Hospitalization HX: chronic back pain, fibromyalgia Surgeries: Yes (cyst removed from thyroid x2, lipoma removed) Appendectomy, Gallbladder, Thyroidectomy Respiratory: Yes COPD Cardiac: No Neurological: Yes Seizure Disorder Genitourinary: No Gastrointestinal: Yes Abdominal Hernia Musculoskeletal: Yes Fibromyalgia Endocrine: No HEENT: No Cancer: No Psychosocial: Yes Schizophrenia Integumentary: No Blood Disorders: No Physical Exam Vital Signs Vital Signs - First Documented 01/05/22 18:37 Temp 37.0 Pulse 114 Resp 18 B/P (MAP) 179/108 (131) Pulse Ox 95 O2 Delivery Room Air Capillary Refill : Height, Weight, BMI Height: '" Weight: lbs. oz. kg; 36.00 BMI Method: General Appearance: No Apparent Distress, WD/WN HEENT: PERRL/EOMI, Normal ENT Inspection, Pharynx Normal Neck: Full Range of Motion, Normal Inspection, Non Tender, Supple Respiratory: Chest Non Tender, Lungs Clear, Normal Breath Sounds, No Accessory Muscle Use, No Respiratory Distress Cardiovascular: No Edema, Normal Peripheral Pulses, Tachycardia Gastrointestinal: Normal Bowel Sounds, Non Tender, Soft; No Distended, No Guarding Extremity: Normal Capillary Refill, Normal Inspection, Normal Range of Motion, Non Tender, No Calf Tenderness, No Pedal Edema, Other (2+ distal pulses) Neurologic/Psychiatric: Alert, Oriented x3, No Motor/Sensory Deficits, Normal Mood/Affect, Other (Normal gait) Skin: Normal Color, Warm/Dry Lymphatic: No Adenopathy Progress/Results/Core Measures Results/Orders Lab Results Laboratory Tests Test 01/05/22 18:49 Range/Units White Blood Count 9.1 4.3-11.0 10^3/uL Red Blood Count 5.52 4.30-5.52 10^6/uL Hemoglobin 15.8 13.3-17.7 g/dL Hematocrit 45 40-54 % Mean Corpuscular Volume 82 80-99 fL Mean Corpuscular Hemoglobin 29 25-34 pg Mean Corpuscular Hemoglobin Concent 35 32-36 g/dL Red Cell Distribution Width 13.2 10.0-14.5 % Platelet Count 198 130-400 10^3/uL Mean Platelet Volume 11.5 9.0-12.2 fL Immature Granulocyte % (Auto) 0 % Neutrophils (%) (Auto) 45 42-75 % Lymphocytes (%) (Auto) 40 12-44 % Monocytes (%) (Auto) 13 H 0-12 % Eosinophils (%) (Auto) 2 0-10 % Basophils (%) (Auto) 0 0-10 % Neutrophils # (Auto) 4.1 1.8-7.8 10^3/uL Lymphocytes # (Auto) 3.7 1.0-4.0 10^3/uL Monocytes # (Auto) 1.2 H 0.0-1.0 10^3/uL Eosinophils # (Auto) 0.1 0.0-0.3 10^3/uL Basophils # (Auto) 0.0 0.0-0.1 10^3/uL Immature Granulocyte # (Auto) 0.0 0.0-0.1 10^3/uL Prothrombin Time 12.6 12.2-14.7 SEC INR Comment 0.9 0.8-1.4 Activated Partial Thromboplast Time 26 24-35 SEC D-Dimer 0.33 0.00-0.49 UG/ML Sodium Level 138 135-145 MMOL/L Potassium Level 4.1 3.6-5.0 MMOL/L Chloride Level 101 98-107 MMOL/L Carbon Dioxide Level 27 21-32 MMOL/L Anion Gap 10 5-14 MMOL/L Blood Urea Nitrogen 14 7-18 MG/DL Creatinine 0.86 0.60-1.30 MG/DL Estimat Glomerular Filtration Rate 114 BUN/Creatinine Ratio 16 Glucose Level 89 70-105 MG/DL Calcium Level 9.4 8.5-10.1 MG/DL Corrected Calcium 9.0 8.5-10.1 MG/DL Magnesium Level 1.9 1.6-2.4 MG/DL Total Bilirubin 0.3 0.1-1.0 MG/DL Aspartate Amino Transf (AST/SGOT) 30 5-34 U/L Alanine Aminotransferase (ALT/SGPT) 68 H 0-55 U/L Alkaline Phosphatase 77 40-136 U/L Troponin I < 0.30 <0.30 NG/ML Pro-B-Type Natriuretic Peptide 10.6 <75.0 PG/ML Total Protein 7.5 6.4-8.2 GM/DL Albumin 4.5 3.2-4.5 GM/DL My Orders Orders - RAMSES KELLY MD Cbc With Automated Diff (01/05/22 18:35) Magnesium (01/05/22 18:35) Ekg Tracing (01/05/22 18:35) Comprehensive Metabolic Panel (01/05/22 18:35) Protime With Inr (01/05/22 18:35) Partial Thromboplastin Time (01/05/22 18:35) O2 (01/05/22 18:35) Monitor-Rhythm Ecg Trace Only (01/05/22 18:35) Ed Iv/Invasive Line Start (01/05/22 18:35) Fibrin Degradation Products (01/05/22 18:35) Troponin I Fs (01/05/22 18:35) Probnp Fs (01/05/22 18:35) Ct Angio Chest/Abd W (01/05/22 18:35) Iohexol Injection (Omnipaque 350 Mg/Ml 1 (01/05/22 19:00) Received Contrast (Hold Metformin- Contr (01/05/22 19:00) Ns (Ivpb) (Sodium Chloride 0.9% Ivpb Bag (01/05/22 19:00) Lidocaine 2% Viscous 15 Ml (Xylocaine Vi (01/05/22 19:15) Antacid Suspension (Mylanta Suspension (01/05/22 19:15) Lactated Ringers (Lr 1000 Ml Iv Solution (01/05/22 19:06) Aspirin Chewable Tablet (Baby Aspirin Ch (01/05/22 19:15) Medications Given in ED Current Medications Medications Dose Ordered Sig/Gricelda Route Start Time Stop Time Status Last Admin Dose Admin Al Hydrox/Mg Hydrox/Simethicone 30 ml ONCE ONCE PO 01/05/22 19:15 01/05/22 19:16 DC 01/05/22 19:17 30 ML Aspirin 324 mg ONCE ONCE PO 01/05/22 19:15 01/05/22 19:16 DC 01/05/22 19:17 324 MG Iohexol 125 ml ONCE ONCE IV 01/05/22 19:00 01/05/22 19:01 DC 01/05/22 18:50 125 ML Lidocaine HCl 15 ml ONCE ONCE PO 01/05/22 19:15 01/05/22 19:16 DC 01/05/22 19:17 15 ML Sodium Chloride 100 ml ONCE ONCE IV 01/05/22 19:00 01/05/22 19:01 DC 01/05/22 18:50 100 ML Vital Signs/I&O 01/05/22 18:37 Temp 37.0 Pulse 114 Resp 18 B/P (MAP) 179/108 (131) Pulse Ox 95 O2 Delivery Room Air Blood Pressure Mean: 131 Progress Progress Note : Progress Note 36-year-old male with above history coming in due to chest pain. ABCs were intact, he was tachycardic on presentation to the 120s and came down to the low 100s after resting. EKG was sinus tachycardia with no acute ischemic changes. An IV was placed and basic labs were obtained including cardiac biomarkers. Given the chest pain with numbness, aortic dissection is on the differential. We will get a CTA to further evaluate for this. Labs reassuring including negative troponin and normal BNP. Given he has had constant pain for more than 30 hours with a negative troponin, this is reassuring. CTA with no dissection and on my interpretation no large pulmonary emboli. Heart rate came down nicely to the 90s after IV fluids. Chest pain is better after the GI cocktail. I discussed all this with the patient, and I believe he is stable for discharge with outpatient follow-up. He was sent home with strict return precautions Initial ECG Impression Date: January 05, 2022 Initial ECG Impression Time: 18:31 Initial ECG Rate: 108 Initial ECG Rhythm: S.Tach Comment Narrow QRS, normal axis, no significant ST changes or T wave abnormalities, single PVC seen, appears similar to prior EKG Diagnostic Imaging Diagonstic Imaging: CT Plain Films/CT/US/NM/MRI: chest Comments NAME: LUPE MATHUR [facility] REC#: [id number] PT STATUS: REG ER : 1985 PHYSICIAN: RAMSES KELLY MD ADMIT DATE: 01/05/22/ER FS Signed Date of Exam:01/05/22 CT ANGIO CHEST/ABD W PROCEDURE: CT angiography of the abdomen and chest with and without contrast. TECHNIQUE: After intravenous administration of contrast, thin section axial CT angiography of the abdomen and chest were obtained. 3D MIP reformats were provided. Auto Exposure Controls were utilized during the CT exam to meet ALARA standards for radiation dose reduction. INDICATION: Chest pain. Abdominal pain. COMPARISON: 07/31/2019. FINDINGS: CTA chest: No evidence of dissection or aneurysm in the thoracic aorta. No periaortic inflammatory changes. No mediastinal hematoma. The heart size is within normal limits. No pericardial effusion is present. There is no mediastinal, hilar or axillary lymphadenopathy. The lung windows demonstrate no pulmonary nodules or masses. There are no focal areas of consolidation. No pneumothoraces are present. No central endobronchial obstructing lesions are identified. There are no pleural effusions. The osseous structures demonstrate degenerative changes without focal lytic or blastic lesions. CTA abdomen: No evidence of aneurysm or dissection in the abdominal aorta. The celiac trunk, SMA, ED and renal arteries are widely patent. No periaortic inflammatory changes. There is hepatic steatosis. The gallbladder is surgically absent. The spleen, pancreas, adrenal glands and kidneys have a normal appearance. There is no pathologically enlarged mesenteric or retroperitoneal adenopathy. The included bowel loops are nondilated. There is no free fluid or free air. No acute osseous abnormalities. IMPRESSION: 1. No evidence of dissection or aneurysm in the thoracic and abdominal aorta. 2. Hepatic steatosis. Dictated by: Dictated on workstation # [id number] Dict: 01/05/221909 Trans: 01/05/221916 PJE [id number] Interpreted by: HEATHER SANON DO Electronically signed by: HEATHER SANON DO 01/05/221916 Departure Impression Primary Impression: Chest pain Qualified Codes: R07.2 - Precordial pain Disposition: 01 HOME, SELF-CARE Condition: Stable Departure-Patient Inst. Decision time for Depature: 19:32 Referrals: CED GUERRA MD (PCP) Primary Care Physician JULIAN SEARS MD FACP FAC CCDS Patient Instructions: Chest Pain, Adult ED Add. Discharge Instructions: Your labs and work-up are reassuring. It does not appear like you are having a heart attack or anything more significant that would be life-threatening. I do want you to follow-up with Dr. Sears, the antique furniture reproducer in [place]. His numbers in this paperwork. Call him in the morning to schedule an appointment. Work/School Note: Work Release Form Date Seen in the Emergency Department: January 05, 2022 Return to Work: January 07, 2022 Restrictions: No Restrictions RAMSES KELLY MD January 05, 2022 18:45
[2022-01-05 18:52] LABS: BASOPHILS % (AUTO) 0 % (0-10); EOSINOPHILS # (AUTO) 0.1 10^3/uL (0.0-0.3); EOSINOPHILS % (AUTO) 2 % (0-10); HEMATOCRIT 45 % (40-54); HEMOGLOBIN 15.8 g/dL (13.3-17.7); LYMPHOCYTES # (AUTO) 3.7 10^3/uL (1.0-4.0); LYMPHOCYTES % (AUTO) 40 % (12-44); MEAN CORPUSCULAR HEMOGLOBIN 29 pg (25-34); MEAN CORPUSCULAR HGB CONC 35 g/dL (32-36); MEAN CORPUSCULAR VOLUME 82 fL (80-99); MEAN PLATELET VOLUME 11.5 fL (9.0-12.2); MONOCYTES # (AUTO) 1.2 10^3/uL (0.0-1.0); MONOCYTES % (AUTO) 13 % (0-12); NEUTROPHILS # (AUTO) 4.1 10^3/uL (1.8-7.8); NEUTROPHILS % (AUTO) 45 % (42-75); PLATELET COUNT 198 10^3/uL (130-400); WHITE BLOOD COUNT 9.1 10^3/uL (4.3-11.0)
[2022-01-05] MEDS ORDERED: NS 100 ML (IVPB) BAG IV ONE (19:00)
[2022-01-05] MEDS ORDERED: IOHEXOL 350 MG/ML 150 ML (OMNIPAQUE 350) VIAL IV ONE (19:00)
[2022-01-05] MEDS ORDERED: HOLD METFORMIN - RECEIVED CONTRAST 20 ML VIAL IV SCH (19:00)
[2022-01-05] MEDS ORDERED: LACTATED RINGERS 1,000 ML IV STA (19:06)
[2022-01-05 19:09] LABS: INR 0.9 (0.8-1.4); PROTHROMBIN TIME PATIENT 12.6 SEC (12.2-14.7)
[2022-01-05] MEDS ORDERED: ASPIRIN 81 MG CHEW (CHILDREN'S ASA) PO ONE (19:15)
[2022-01-05] MEDS ORDERED: LIDOCAINE 2% VISCOUS 15 ML UDC PO ONE (19:15)
[2022-01-05] MEDS ORDERED: ANTACID SUSP 30 ML UDC (MYLANTA) PO ONE (19:15)
--- NOTE | 2022-01-05 19:15 | Diagnostic Imaging Report ---
PROCEDURE: CT angiography of the abdomen and chest with and without contrast. TECHNIQUE: After intravenous administration of contrast, thin section axial CT angiography of the abdomen and chest were obtained. 3D MIP reformats were provided. Auto Exposure Controls were utilized during the CT exam to meet ALARA standards for radiation dose reduction. INDICATION: Chest pain. Abdominal pain. COMPARISON: 07/31/2019. FINDINGS: CTA chest: No evidence of dissection or aneurysm in the thoracic aorta. No periaortic inflammatory changes. No mediastinal hematoma. The heart size is within normal limits. No pericardial effusion is present. There is no mediastinal, hilar or axillary lymphadenopathy. The lung windows demonstrate no pulmonary nodules or masses. There are no focal areas of consolidation. No pneumothoraces are present. No central endobronchial obstructing lesions are identified. There are no pleural effusions. The osseous structures demonstrate degenerative changes without focal lytic or blastic lesions. CTA abdomen: No evidence of aneurysm or dissection in the abdominal aorta. The celiac trunk, SMA, ED and renal arteries are widely patent. No periaortic inflammatory changes. There is hepatic steatosis. The gallbladder is surgically absent. The spleen, pancreas, adrenal glands and kidneys have a normal appearance. There is no pathologically enlarged mesenteric or retroperitoneal adenopathy. The included bowel loops are nondilated. There is no free fluid or free air. No acute osseous abnormalities. IMPRESSION: 1. No evidence of dissection or aneurysm in the thoracic and abdominal aorta. 2. Hepatic steatosis. Dictated by: Dictated on workstation # [id number]
[2022-01-05 19:19] LABS: POTASSIUM 4.1 MMOL/L (3.6-5.0)
[2022-01-05 19:20] LABS: ALBUMIN 4.5 GM/DL (3.2-4.5); BILIRUBIN,TOTAL 0.3 MG/DL (0.1-1.0); CALCIUM 9.4 MG/DL (8.5-10.1); CREATININE SERUM 0.86 MG/DL (0.60-1.30); MAGNESIUM 1.9 MG/DL (1.6-2.4); TOTAL PROTEIN 7.5 GM/DL (6.4-8.2)
[2022-01-05 19:41] VITALS: BP 139/83
== END 2022-01-05 19:41 | disposition home or self-care (01) ==
LOC: EDUNIT# 18:28 → ER FS 18:29
DX: R07.2 Precordial pain (principal)
CPT/HCPCS: 36415; 71275; 74175; 80053; 83735; 83880; 84484; 85025; 85379; 85610; 85730; 93005; 93041; Q9967

== ENCOUNTER → 2022-01-19 | Outpatient (CLI) | payer MEDICAID ==
[~2022-01-19] MED LIST changes: +CATHETER FLUSH 10 ML SYR IVP PRN
[2022-01-19 08:56] VITALS: BP 156/88
--- NOTE | 2022-01-20 07:55 | NUCLEAR STRESS TEST ---
TREADMILL NUCLEAR STRESS TEST Date of procedure: 01/19/2022. Primary care provider: Nate Khan MD. Admitting physician: Ashkan Dawson Jr., MD. INDICATION: Abnormal electrocardiogram. BASELINE ELECTROCARDIOGRAM: Sinus rhythm with nonspecific intraventricular conduction delay STRESS TEST PROCEDURE: The patient was exercised for a total of 8 minutes and 50 seconds of the standard Mandeep protocol achieving a maximum MET level of 9.3. The resting heart rate was 86 bpm and the peak heart rate was 158 bpm, which represents 86% of the maximum predicted heart rate. The resting blood pressure was 148/83 mmHg and the peak blood pressure was 251/68 mmHg. This represents a normal heart rate and a hypertensive blood pressure response to exercise. The test was stopped due to fatigue. There was no chest discomfort during the test. There were isolated premature ventricular complexes in recovery. There were no significant stress induced electrocardiogram changes. The patient exhibited good exercise capacity for age. NUCLEAR PROCEDURE: The patient was administered 10.6 mCi of intravenous technetium 99m Tetrofosmin at rest for the rest images. The patient was subsequently administered 29.5 mCi of intravenous technetium 99 M Tetrofosmin at peak stress for the stress images. Following an appropriate wait after each injection, imaging was obtained. The images were subsequently processed and reformatted in the usual views. Gated imaging was obtained. The image quality was adequate with a mild degree of gastrointestinal attenuation artifact. CT attenuation correction was not used due to technical failure of the CT scanner. NUCLEAR RESULTS: There was a small, mild intensity, reversible apical defect with a small amount of inducible ischemia. There was normal left ventricular chamber size with an end-diastolic volume of 80 mL and an end-systolic volume of 39 mL. There was no evidence of transient ischemic dilatation. The TID ratio was 0.98. There was normal wall motion in all segments with a calculated ejection fraction of 52%. IMPRESSION: 1. Normal heart rate and a hypertensive blood pressure response to exercise. 2. There was no chest discomfort or electrocardiogram changes during the test. 3. There were isolated premature ventricular complexes in recovery. 4. The patient exhibited good exercise capacity for age at 8 minutes and 50 seconds of the Mandeep protocol. 5. There was a small, mild intensity, reversible apical defect with a small amount of inducible ischemia. 6. There was normal wall motion in all segments with a calculated ejection fraction of 52%. 7. This is an abnormal result although represents an overall low risk for possible future coronary ischemic events. Certain portions of this document may have been dictated utilizing voice recognition technology. Inherent to this technology, typographical and grammatical errors may exist. As much as I am diligent to identify and correct these mistakes, some errors may remain in the document. ASHKAN DAWSON JR, MD Jan 20, 2022 07:55
== END ==
LOC: CARD 11:00
PROVIDERS: ATTEND Internal Medicine Cardiovascular Disease
DX: I51.7 Cardiomegaly (principal)
CPT/HCPCS: 78452; 93017; 93306

== ENCOUNTER → 2022-03-08 | Outpatient (CLI) | payer MEDICAID ==
[~2022-03-08] MED LIST changes: +ACET-2267 PO; +ASPI-1238 PO; +ATOR40TA70 PO; -CATHETER FLUSH 10 ML SYR IVP PRN; +DIVA250T12 PO; +ISOS30TA82 PO; +LISI10TA25 PO; +METO50TA7 PO; +OMEP40CA6 PO
[2022-03-08 09:32] LABS: BASOPHILS % (AUTO) 0 % (0-10); EOSINOPHILS # (AUTO) 0.2 10^3/uL (0.0-0.3); EOSINOPHILS % (AUTO) 1 % (0-10); HEMATOCRIT 47 % (40-54); HEMOGLOBIN 15.9 g/dL (13.3-17.7); LYMPHOCYTES # (AUTO) 4.2 10^3/uL (1.0-4.0); LYMPHOCYTES % (AUTO) 39 % (12-44); MEAN CORPUSCULAR HEMOGLOBIN 28 pg (25-34); MEAN CORPUSCULAR HGB CONC 34 g/dL (32-36); MEAN CORPUSCULAR VOLUME 83 fL (80-99); MEAN PLATELET VOLUME 10.8 fL (9.0-12.2); MONOCYTES # (AUTO) 1.2 10^3/uL (0.0-1.0); MONOCYTES % (AUTO) 11 % (0-12); NEUTROPHILS # (AUTO) 5.3 10^3/uL (1.8-7.8); NEUTROPHILS % (AUTO) 48 % (42-75); PLATELET COUNT 248 10^3/uL (130-400)
[2022-03-08 09:56] LABS: SMEAR SCAN COMMENT OK
[2022-03-08 09:59] LABS: INR 0.9 (0.8-1.4); PROTHROMBIN TIME PATIENT 12.3 SEC (12.2-14.7)
[2022-03-08 10:57] LABS: CALCIUM 9.2 MG/DL (8.5-10.1); CREATININE SERUM 0.92 MG/DL (0.60-1.30)
== END ==
LOC: LAB FS 09:18
PROVIDERS: ATTEND Internal Medicine Cardiovascular Disease
DX: I20.9 Angina pectoris, unspecified (principal)
CPT/HCPCS: 36415; 80048; 85025; 85610

== ENCOUNTER 2022-03-09 09:00 | Day surgery (SDC) | payer MEDICAID ==
[2022-03-09] VITALS (10 sets, daily range): BP systolic 100–142; BP diastolic 75–83
[~2022-03-09] VITALS: Ht 180.3 cm; Wt 116.6 kg
--- NOTE | 2022-03-09 08:40 | Pre-Op Note & Conscious Sedat ---
Pre-Operative Progress Note H&P Reviewed The H&P was reviewed, patient examined and no changes noted. Date H&P Reviewed: Mar 09, 2022 Time H&P Reviewed: 08:40 Pre-Op Diagnosis: Angina pectoris and abnormal stress test Given the patient's current clinical status, he is considered vulnerable. He has no history of heart failure. Conscious Sedation Pre-Proced ASA Score 2 For ASA 3 and 4: Consider anesthesia and medical clearance. Also, for patients with a history of failed moderate sedation consider anesthesia. Airway Lungs Heart ASA score ASA 1: a normal healthy patient ASA 2: a patient with a mild systemic disease (mid diabetes, controlled hypertension, obesity ASA 3: a patient with a severe systemic disease that limits activity (angina, COPD, prior Myocardial infarction) ASA 4: a patient with an incapacitating disease that is a constant threat to life (CHF, renal failure) ASA 5: a moribund patient not expected to survive 24 hrs. (ruptured aneurysm) ASA 6: a declared brain- patient whose organs are being harvested. For emergent operations, add the letter E after the classification Mallampati Classification Grade 2 Sedation Plan Analgesia, Amnesia, Plan communicated to team members, Discussed options with patient/fam, Discussed risks with patient/fam The patient is an appropriate candidate to undergo the planned procedure, sedation, and anesthesia. The patient immediately re-assessed prior to indication. SANIYA PROCTOR JR, MD Mar 09, 2022 08:40
[~2022-03-09 09:00] MED LIST changes: -ACET-2267 PO; -ASPI-1238 PO; +ASPIRIN 81 MG CHEW (CHILDREN'S ASA) ONE; +ASPIRIN 81 MG CHEW (CHILDREN'S ASA) PO ONE; -ATOR40TA70 PO; +CATHETER FLUSH 10 ML SYR IV PRN; -DIVA250T12 PO; +HEParin (CATH LAB) 2,000 ML IV ONE; +HEParin 1000 UNIT/ML (10ML VIAL) FOR BOLUS ONE; -ISOS30TA82 PO; +LIDOCAINE 1% INJ 20 ML VIAL ONE; -LISI10TA25 PO; -METO50TA7 PO; +MIDAZOLAM 5 MG/5 ML (VERSED) VIAL ONE; +NITRO DRIP 25000 MCG/D5W 250 ML IV ONE; +NS IV 1000 ML 1,000 ML IV ONE; +NS IV 1000 ML 1,000 ML ONE; -OMEP40CA6 PO; +VERAPAMIL 5 MG/2 ML (CALAN) VIAL IV ONE; +fentaNYL INJ 100 MCG/2 ML AMP ONE
[2022-03-09] MEDS ORDERED: OMEP40CA6 PO ×2 (09:02→09:52)
[2022-03-09] MEDS ORDERED: ACET-2267 PO (09:02)
[2022-03-09] MEDS ORDERED: ATOR40TA70 PO (09:02)
[2022-03-09] MEDS ORDERED: DIVA500T15 PO (09:02)
[2022-03-09] MEDS ORDERED: ASPI-1238 PO (09:02)
[2022-03-09] MEDS ORDERED: LISI10TA25 PO (09:02)
[2022-03-09] MEDS ORDERED: ISOS30TA82 PO (09:02)
[2022-03-09] MEDS ORDERED: METO50TA7 PO (09:02)
[2022-03-09] MEDS ORDERED: DIVA250T12 PO (09:02)
--- NOTE | 2022-03-09 09:41 | Cardiac Cath Report ---
CARDIAC CATHETERIZATION DATE OF PROCEDURE: 03/09/2022 INDICATION: Angina pectoris and abnormal nuclear stress test. HISTORY: The patient is a 36 year old male with no known history of coronary artery disease who recently developed exertional chest discomfort. He underwent a nuclear stress test that showed a small area of ischemia in the apex with a normal ejection fraction. He was placed on aspirin and beta-geovanna. Due to persistent chest discomfort, he was then also started on long-acting nitrates. However, he has continued to have chest discomfort. Therefore, he has now referred for further evaluation with a cardiac catheterization. Given his current clinical status, he is considered vulnerable. He has no history of heart failure. PROCEDURES PERFORMED: 1. Left heart catheterization with hemodynamic measurements. 2. Diagnostic [place] coronary angiography. PROCEDURE DESCRIPTION: After informed consent and in the fasting state, left heart catheterization was performed through the right radial artery utilizing a 6 Vincentian system by percutaneous approach. Standard 5 Vincentian Adonis catheters were utilized for the diagnostic portion of the procedure. All catheters were exchanged over a guidewire. Following the procedure, a vascular band was applied to the radial artery access site and the sheath was removed with good hemostasis. RESULTS: HEMODYNAMICS: The aortic pressure was 106/67 mmHg. The left ventricular pressure was 127/0 mmHg with a left ventricular end diastolic pressure of 6 mmHg. There was no significant pressure gradient upon pullback across the aortic valve. CORONARY ANGIOGRAPHY: Left main coronary artery: Free of significant disease. Left anterior descending coronary artery: Free of significant disease. Left circumflex coronary artery: Free of significant disease. Right coronary artery: Dominant and free of significant disease. IMPRESSION: 1. Normal left heart pressures. 2. Angiographically normal-appearing coronary arteries in a right dominant system. 3. The patient is known to have normal left ventricular systolic function with an estimated ejection fraction of 55-60% by echocardiogram that was performed on 01/19/2022. 4. The patient is most likely having noncardiac chest pain, possibly due to gastroesophageal reflux disease. I will increase his dose of omeprazole to twice daily dosing. Certain portions of this document may have been dictated utilizing voice recognition technology. Inherent to this technology, typographical and grammatical errors may exist. As much as I am diligent to identify and correct these mistakes, some errors may remain in the document. SANIYA PROCTOR JR, MD Mar 09, 2022 09:41
[2022-03-09] MEDS ORDERED: NS IV 1000 ML 1,000 ML IV SCH (09:45)
[2022-03-09] MEDS ORDERED: ACETAMINOPHEN 500 MG TAB (TYLENOL) PO ONE (10:15)
[2022-03-09] MEDS ORDERED: ACETAMINOPHEN 500 MG TAB (TYLENOL) ONE (10:17)
== END 2022-03-09 12:30 ==
LOC: CATH 09:00 → SDC 09:58 → CATH 12:30
PROVIDERS: ATTEND Internal Medicine Cardiovascular Disease
DX: I20.9 Angina pectoris, unspecified (principal); R94.39 Abnormal result of other cardiovascular function study; F17.210 Nicotine dependence, cigarettes, uncomplicated; K21.9 Gastro-esophageal reflux disease without esophagitis; E78.2 Mixed hyperlipidemia; I10 Essential (primary) hypertension; J44.9 Chronic obstructive pulmonary disease, unspecified; F15.21 Other stimulant dependence, in remission; E66.9 Obesity, unspecified; Z68.35 Body mass index [BMI] 35.0-35.9, adult; Z79.51 Long term (current) use of inhaled steroids; Z79.899 Other long term (current) drug therapy
CPT/HCPCS: 87081; 93458

== ENCOUNTER 2022-09-03 13:13 | Emergency (ER) | payer MEDICAID ==
[~2022-09-03 13:13] MED LIST changes: +ACET-2267 PO; +ALBU8.5H6 IH; +ASPI-1238 PO; -ASPIRIN 81 MG CHEW (CHILDREN'S ASA) ONE; -ASPIRIN 81 MG CHEW (CHILDREN'S ASA) PO ONE; +ATOR40TA70 PO; -CATHETER FLUSH 10 ML SYR IV PRN; +DIVA250T12 PO; -HEParin (CATH LAB) 2,000 ML IV ONE; -HEParin 1000 UNIT/ML (10ML VIAL) FOR BOLUS ONE; +ISOS30TA82 PO; -LIDOCAINE 1% INJ 20 ML VIAL ONE; +LISI10TA25 PO; +METO50TA7 PO; -MIDAZOLAM 5 MG/5 ML (VERSED) VIAL ONE; -NITRO DRIP 25000 MCG/D5W 250 ML IV ONE; -NS IV 1000 ML 1,000 ML IV ONE; -NS IV 1000 ML 1,000 ML ONE; +OMEP40CA6 PO; -RT-ALBUINH IH; -VERAPAMIL 5 MG/2 ML (CALAN) VIAL IV ONE; -fentaNYL INJ 100 MCG/2 ML AMP ONE
[2022-09-03] MEDS ORDERED: KETOROLAC 60 MG/2 ML VIAL IM ONE (13:30)
--- NOTE | 2022-09-03 13:37 | ED Back Pain ---
General Chief Complaint: Back Problems Stated Complaint: BACK PAIN,TINGLING IN LEGS Nursing Triage Note: PT REPORTS BACK PAIN, HX OF BACK PAIN WITH A "BULDGING DISC". Source of Information: Patient Exam Limitations: No Limitations History of Present Illness Date Seen by Provider: Sep 03, 2022 Time Seen by Provider: 13:21 Initial Comments 37-year-old male patient with history of intermittent episodes of back pain and history of bulging disc complaining of low back pain after he woke up 4 days ago with a constant sharp pain in his low back without radiation that gradually getting worse. Patient complaining of tingling of his legs that started an hour and half ago. Patient denies injury, fever and chills, urinary and bowel incontinence, abdominal pain, nausea and vomiting, weakness of his legs. Patient stated he had to leave his work today because of pain. Patient states he took leftover Flexeril and ibuprofen without improvement of his pain and rated his pain 7/10. Patient states the pain getting worse with movement and bending. Allergies and Home Medications Allergies Coded Allergies: latex (Unverified Allergy, Unknown, 07/31/19) SWELLING sulfamethoxazole (Unverified Allergy, Unknown, HIVES, 07/31/19) tetrahydrozoline (Verified Allergy, Unknown, 09/01/19) trimethoprim (Unverified Allergy, Unknown, HIVES, 07/31/19) Uncoded Allergies: PAPER TAPE (Allergy, Mild, RASH, 11/18/08) Patient Home Medication List Home Medication List Reviewed: Yes Acetaminophen (Tylenol Extra Strength) 500 Mg Tablet, 1,000 MG PO Q8H PRN for PAIN-MILD (1-4), (Reported) Entered as Reported by: CATY FRY on 03/09/22 0902 Albuterol Sulfate (Ventolin Hfa) 1 Puff Puff, 2 PUFF INH Q4H PRN for SHORTNESS OF BREATH, (Reported) Entered as Reported by: NAILA CUELLAR on 09/03/19 0937 Aspirin (Aspirin EC) 81 Mg Tablet.dr, 81 MG PO DAILY, (Reported) Entered as Reported by: CATY FRY on 03/09/22 0902 Cyclobenzaprine HCl (Cyclobenzaprine HCl) 10 Mg Tablet, 20 MG PO HS, (Reported) Entered as Reported by: OJSE RODRIGEZ on 07/30/19900 Cyclobenzaprine HCl (Cyclobenzaprine HCl) 10 Mg Tablet, 10 MG PO Q8H PRN for SPASMS Prescribed by: Connie munoz on 09/03/22 1340 Divalproex Sodium (Divalproex Sodium ER) 250 Mg Tab.er.24h, 250 MG PO BID, (Reported) Entered as Reported by: CATY FRY on 03/09/22 09 Divalproex Sodium (Divalproex Sodium ER) 500 Mg Tab.er.24h, 500 MG PO BID, (Reported) Entered as Reported by: CATY FRY on 03/09/22 09 Ketorolac Tromethamine (Ketorolac Tromethamine) 10 Mg Tablet, 10 MG PO TID PRN for pain Prescribed by: Connie munoz on 09/03/22 1340 Lisinopril (Lisinopril) 10 Mg Tablet, 10 MG PO HS, (Reported) Entered as Reported by: CATY FRY on 03/09/22 09 Methylprednisolone (Methylprednisolone Dose Pack) 4 Mg Tab.ds.pk, 4 MG PO UD Prescribed by: Connie munoz on 09/03/22 1340 Metoprolol Succinate (Metoprolol Succinate) 50 Mg Tab.er.24h, 50 MG PO HS, (Reported) Entered as Reported by: CATY FRY on 03/09/22 09 Omeprazole (Omeprazole) 40 Mg Capsule.dr, 40 MG PO BID Prescribed by: SANIYA PROCTOR JR, MD on 03/09/22 09 Risperidone (Risperidone) 2 Mg Tablet, 2 MG PO BID, (Reported) Entered as Reported by: JOSE RODRIGEZ on 07/30/19900 Review of Systems Constitutional: see HPI EENTM: see HPI Respiratory: see HPI Cardiovascular: see HPI Gastrointestinal: see HPI Genitourinary: see HPI Musculoskeletal: see HPI Skin: see HPI Psychiatric/Neurological: See HPI All Other Systems Reviewed Negative Unless Noted: Yes Past Kozafrq-Dpuizv-Njacnn Hx Patient Social History Tobacco Use?: Yes Tobacco type used: Cigarettes Smoking Status: Current Everyday Smoker Use of E-Cig and/or Vaping dev: No Substance use?: No Alcohol Use?: Yes Alcohol type: Beer Alcohol Frequency: Once in a while Pt feels they are or have been: No Seasonal Allergies Seasonal Allergies: No Past Medical History Surgery/Hospitalization HX: chronic back pain, fibromyalgia Surgeries: Yes (cyst removed from thyroid x2, lipoma removed) Appendectomy, Gallbladder, Thyroidectomy Respiratory: Yes COPD Cardiac: No Neurological: Yes Seizure Disorder Genitourinary: No Gastrointestinal: Yes Abdominal Hernia Musculoskeletal: Yes Fibromyalgia Endocrine: No HEENT: No Cancer: No Psychosocial: Yes Schizophrenia Integumentary: No Blood Disorders: No Physical Exam Vital Signs Vital Signs - First Documented 09/03/22 13:16 Temp 36.1 Pulse 98 Resp 16 B/P (MAP) 146/73 (97) Pulse Ox 99 O2 Delivery Room Air Capillary Refill : Less Than 3 Seconds Height, Weight, BMI Height: '" Weight: lbs. oz. kg; 35.86 BMI Method: General Appearance: WD/WN, Mild Distress, Other (Poor hygiene) HEENT: PERRL/EOMI Neck: Full Range of Motion, Normal Inspection, Non Tender, Supple Cardiovascular: Regular Rate, Rhythm, No Edema, No Gallop Respiratory: Chest Non Tender, Lungs Clear, Normal Breath Sounds, No Accessory Muscle Use, No Respiratory Distress Gastrointestinal: Normal Bowel Sounds, No Organomegaly, No Pulsatile Mass Back: Normal Inspection, No CVA Tenderness, No Vertebral Tenderness, Decreased Range of Motion Extremity: Normal Capillary Refill Neurologic/Psychiatric: Alert, Oriented x3, No Motor/Sensory Deficits, Normal Mood/Affect, Other (No paresthesia) Skin: Warm/Dry Progress/Results/Core Measures Results/Orders My Orders Orders - CONNIE MUNOZ MD Ketorolac Injection (Toradol Injection) (09/03/22 13:30) Medications Given in ED Current Medications Medications Dose Ordered Sig/Gricelda Route Start Time Stop Time Status Last Admin Dose Admin Ketorolac Tromethamine 60 mg ONCE ONCE IM 09/03/22 13:30 09/03/22 13:31 DC 09/03/22 13:34 60 MG Vital Signs/I&O 09/03/22 09/03/22 13:16 13:39 Temp 36.1 36.1 Pulse 98 98 Resp 16 16 B/P (MAP) 146/73 (97) 146/73 Pulse Ox 99 99 O2 Delivery Room Air Room Air Blood Pressure Mean: 97 Progress Progress Note : Progress Note 37-year-old male patient with history of previous episodes of back pain and bowel changes complaining of low back pain for the last 4 days that did not get better with ibuprofen and Flexeril. Patient complaining of tingling of his leg today. Patient did not have paresthesia in his exam and treated with Toradol in ER. Plan to discharge patient home with prescription of Medrol Dosepak, Toradol, Flexeril and advised to apply ice on his back and follow-up with his primary care physician in 3 days and return to ER as needed. Patient needed work excuse and 3 days off of work was given. Departure Impression Primary Impression: Lumbar sprain Qualified Codes: S33.5XXA - Sprain of ligaments of lumbar spine, initial encounter Disposition: HOME, SELF-CARE Condition: Stable Departure-Patient Inst. Decision time for Depature: 13:37 Referrals: CED GUERRA MD (PCP/Family) Primary Care Physician Patient Instructions: Back Muscle Strain (DC) Add. Discharge Instructions: Apply ice on your back Drink plenty of liquids Follow-up with your primary care physician in 3 days Return to ER as needed All discharge instructions reviewed with patient and/or family. Voiced understanding. Scripts Ketorolac Tromethamine (Ketorolac Tromethamine) 10 Mg Tablet 10 MG PO TID PRN for pain, #15 TAB Prov: CONNIE MUNOZ MD 09/03/22 Methylprednisolone (Methylprednisolone Dose Pack) 4 Mg Tab.ds.pk 4 MG PO UD for asthma for 6 Days, #21 PKG PER DOSE PACK INSTRUCTIONS Prov: CONNIE MUNOZ MD 09/03/22 Cyclobenzaprine HCl (Cyclobenzaprine HCl) 10 Mg Tablet 10 MG PO Q8H PRN for SPASMS, #15 TAB 0 Refills Prov: CONNIE MUNOZ MD 09/03/22 Work/School Note: Work Release Form Return to Work: Sep 06, 2022 CONNIE MUNOZ MD Sep 03, 2022 13:36
[2022-09-03 13:39] VITALS: BP 146/73
[2022-09-03] MEDS ORDERED: CYCL10TA25 PO (13:40)
[2022-09-03] MEDS ORDERED: KETO10TA PO (13:40)
[2022-09-03] MEDS ORDERED: METH4TAB10 PO (13:40)
== END 2022-09-03 13:42 | disposition home or self-care (01) ==
LOC: EDUNIT# 13:13 → ER FS 13:14
DX: S33.5XXS Sprain of ligaments of lumbar spine, sequela (principal); F17.210 Nicotine dependence, cigarettes, uncomplicated; Z28.310 Unvaccinated for COVID-19; X58.XXXS Exposure to other specified factors, sequela
CPT/HCPCS: 99284

== ENCOUNTER 2023-05-03 15:14 | Emergency (ER) | payer MEDICAID ==
[~2023-05-03] VITALS: Ht 182 cm; Wt 79.0 kg
[~2023-05-03 15:14] MED LIST changes: +KETO10TA PO; +METH4TAB10 PO
--- NOTE | 2023-05-03 15:57 | ED General ---
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 REPORTS HE HAS BEEN TIRED ALL DAY AND HAS DRANK 4 POTS OF COFFEE. REPORTS HIS VISION IS ALWAYS A LITTLE BLURRY BECAUSE HE IS SUPPOSED TO WEAR GLASSES BUT HAS NOT FOR 2 YEARS. REPORTS HIS LEFT ARM WAS TINGLING UPON WAKING THIS AM. Source of Information: Patient, Other ([facility] clinic report) Exam Limitations: No Limitations History of Present Illness Date Seen by Provider: May 03, 2023 Time Seen by Provider: 15:21 Initial Comments Report was received from Thi Crawford, provider at the [facility], prior to patient's arrival. This 38-year-old gentleman presents to the emergency room with primary complaint of memory lapses. Symptoms were not present yesterday. He reports having episodes of time lapse while at work. He works at a fast food restaurant and describes episodes in which she will be making a sandwich, loses time, and finds himself making another sandwich without remembering completion of the first. He also reports having some tingling in his left arm when he woke this morning, but that resolved. He denies any chest pain or shortness of breath. He has chronically poor vision and is supposed to wear glasses. He has not worn glasses in 2 years. He reports his vision is more blurry today than usual. He does not describe any focal visual field deficits. 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 No acute focal deficits were identified on exam in the clinic, nor during assessment in the ER. Patient denies any drug or alcohol use. He has been without lisinopril and atorvastatin for a few days. He reports being tired and drinking 4 pots of coffee today. Allergies and Home Medications Allergies Coded Allergies: latex (Unverified Allergy, Unknown, 07/31/19) SWELLING sulfamethoxazole (Unverified Allergy, Unknown, HIVES, 07/31/19) tetrahydrozoline (Verified Allergy, Unknown, 09/01/19) trimethoprim (Unverified Allergy, Unknown, HIVES, 07/31/19) Uncoded Allergies: PAPER TAPE (Allergy, Mild, RASH, 11/18/08) Patient Home Medication List Home Medication List Reviewed: Yes Acetaminophen (Tylenol Extra Strength) 500 Mg Tablet, 1,000 MG PO Q8H PRN for PAIN-MILD (1-4), (Reported) Entered as Reported by: CATY FRY on 03/09/22 09 Albuterol Sulfate (Ventolin Hfa) 1 Puff Puff, 2 PUFF INH Q4H PRN for SHORTNESS OF BREATH, (Reported) Entered as Reported by: NAILA CUELLAR on 09/03/19 0937 Aspirin (Aspirin EC) 81 Mg Tablet.dr, 81 MG PO DAILY, (Reported) Entered as Reported by: CATY FRY on 03/09/22 09 Cyclobenzaprine HCl (Cyclobenzaprine HCl) 10 Mg Tablet, 20 MG PO HS, (Reported) Entered as Reported by: JOSE RODRIGEZ on 07/30/19 09 Cyclobenzaprine HCl (Cyclobenzaprine HCl) 10 Mg Tablet, 10 MG PO Q8H PRN for SPASMS Prescribed by: Connie camargo on 09/03/22 1340 Divalproex Sodium (Divalproex Sodium ER) 250 Mg Tab.er.24h, 250 MG PO BID, (Reported) Entered as Reported by: CATY FRY on 03/09/22 09 Divalproex Sodium (Divalproex Sodium ER) 500 Mg Tab.er.24h, 500 MG PO BID, (Reported) Entered as Reported by: CATY FRY on 03/09/22 09 Ketorolac Tromethamine (Ketorolac Tromethamine) 10 Mg Tablet, 10 MG PO TID PRN for pain Prescribed by: Connie camargo on 09/03/22 1340 Lisinopril (Lisinopril) 10 Mg Tablet, 10 MG PO HS, (Reported) Entered as Reported by: CATY FRY on 03/09/22 09 Methylprednisolone (Methylprednisolone Dose Pack) 4 Mg Tab.ds.pk, 4 MG PO UD Prescribed by: Connie camargo on 09/03/22 1340 Metoprolol Succinate (Metoprolol Succinate) 50 Mg Tab.er.24h, 50 MG PO HS, (Reported) Entered as Reported by: CATY FRY on 03/09/22 09 Omeprazole (Omeprazole) 40 Mg Capsule.dr, 40 MG PO BID Prescribed by: SANIYA PROCTOR JR, MD on 03/09/22 0952 Risperidone (Risperidone) 2 Mg Tablet, 2 MG PO BID, (Reported) Entered as Reported by: JOSE RODRIGEZ on 07/30/19 0901 Review of Systems Review of Systems Constitutional: no symptoms reported EENTM: see HPI Respiratory: no symptoms reported Cardiovascular: no symptoms reported Gastrointestinal: no symptoms reported Genitourinary: no symptoms reported Musculoskeletal: no symptoms reported Skin: no symptoms reported Psychiatric/Neurological: See HPI Hematologic/Lymphatic: No Symptoms Reported Immunological/Allergic: no symptoms reported Past Mdvxjsc-Uwyxvx-Hlfwlk Hx Patient Social History Tobacco Use?: Yes Tobacco type used: Cigarettes Smoking Status: Current Everyday Smoker Use of E-Cig and/or Vaping dev: No Substance use?: No Alcohol Use?: No Pt feels they are or have been: No Seasonal Allergies Seasonal Allergies: No Past Medical History Surgery/Hospitalization HX: chronic back pain, fibromyalgia, COPD, EMPHYSEMA, SEIZURE DISORDER, BIPOLAR, Surgeries: Yes (cyst removed from thyroid x2, lipoma removed) Appendectomy, Gallbladder, Thyroidectomy Respiratory: Yes COPD Cardiac: No Neurological: Yes Seizure Disorder Genitourinary: No Gastrointestinal: Yes Abdominal Hernia Musculoskeletal: Yes Fibromyalgia Endocrine: No HEENT: No Cancer: No Psychosocial: Yes Bipolar, Schizophrenia Integumentary: No Blood Disorders: No Physical Exam Vital Signs Vital Signs - First Documented 05/03/23 15:22 Temp 36.7 Pulse 75 Resp 16 B/P (MAP) 128/81 (97) Pulse Ox 96 O2 Delivery Room Air Capillary Refill : Less Than 3 Seconds Height, Weight, BMI Height: '" Weight: lbs. oz. kg; 23.00 BMI Method: General Appearance: No Apparent Distress, WD/WN HEENT: PERRL/EOMI, Normal ENT Inspection, Pharynx Normal, Other (Poor vision in right eye stated as chronic and unchanged) Neck: Normal Inspection Respiratory: Lungs Clear, Normal Breath Sounds, No Accessory Muscle Use Cardiovascular: Regular Rate, Rhythm, No Edema, No Murmur Gastrointestinal: Normal Bowel Sounds, Soft, Tenderness (RUQ) Extremity: Normal Inspection, No Pedal Edema Neurologic/Psychiatric: Alert, Oriented x3, No Motor/Sensory Deficits, Normal Mood/Affect, shirt maker II-XII Norm as Tested (chronic poor vision in right eye) Skin: Normal Color, Warm/Dry Progress/Results/Core Measures Suspected Sepsis SIRS Temperature: Pulse: 75 Respiratory Rate: 16 Laboratory Tests 05/03/23 15:36: White Blood Count 8.5 Blood Pressure 128 /81 Mean: 97 Laboratory Tests 05/03/23 15:36: Creatinine 0.88, Platelet Count 232, Total Bilirubin 0.5 Results/Orders Lab Results Laboratory Tests Test 05/03/23 15:36 05/03/23 15:41 Range/Units White Blood Count 8.5 4.3-11.0 10^3/uL Red Blood Count 5.26 4.30-5.52 10^6/uL Hemoglobin 15.1 13.3-17.7 g/dL Hematocrit 45 40-54 % Mean Corpuscular Volume 85 80-99 fL Mean Corpuscular Hemoglobin 29 25-34 pg Mean Corpuscular Hemoglobin Concent 34 32-36 g/dL Red Cell Distribution Width 13.3 10.0-14.5 % Platelet Count 232 130-400 10^3/uL Mean Platelet Volume 11.3 9.0-12.2 fL Immature Granulocyte % (Auto) 0 % Neutrophils (%) (Auto) 43 42-75 % Lymphocytes (%) (Auto) 46 H 12-44 % Monocytes (%) (Auto) 9 0-12 % Eosinophils (%) (Auto) 2 0-10 % Basophils (%) (Auto) 0 0-10 % Neutrophils # (Auto) 3.7 1.8-7.8 10^3/uL Lymphocytes # (Auto) 3.9 1.0-4.0 10^3/uL Monocytes # (Auto) 0.7 0.0-1.0 10^3/uL Eosinophils # (Auto) 0.2 0.0-0.3 10^3/uL Basophils # (Auto) 0.0 0.0-0.1 10^3/uL Immature Granulocyte # (Auto) 0.0 0.0-0.1 10^3/uL Sodium Level 138 135-145 MMOL/L Potassium Level 4.4 3.6-5.0 MMOL/L Chloride Level 101 98-107 MMOL/L Carbon Dioxide Level 26 21-32 MMOL/L Anion Gap 11 5-14 MMOL/L Blood Urea Nitrogen 14 7-18 MG/DL Creatinine 0.88 0.60-1.30 MG/DL Estimat Glomerular Filtration Rate 112 BUN/Creatinine Ratio 16 Glucose Level 104 70-105 MG/DL Calcium Level 9.4 8.5-10.1 MG/DL Corrected Calcium 9.0 8.5-10.1 MG/DL Magnesium Level 2.0 1.6-2.4 MG/DL Total Bilirubin 0.5 0.1-1.0 MG/DL Aspartate Amino Transf (AST/SGOT) 24 5-34 U/L Alanine Aminotransferase (ALT/SGPT) 20 0-55 U/L Alkaline Phosphatase 77 40-136 U/L Total Protein 7.4 6.4-8.2 GM/DL Albumin 4.5 3.2-4.5 GM/DL Serum Alcohol < 10 <10 MG/DL Urine Color OTHER H Urine Clarity CLEAR Urine pH 6.5 5-9 Urine Specific [place] <=1.005 1.016-1.022 Urine Protein NEGATIVE NEGATIVE Urine Glucose (UA) NEGATIVE NEGATIVE Urine Ketones NEGATIVE NEGATIVE Urine Nitrite NEGATIVE NEGATIVE Urine Bilirubin NEGATIVE NEGATIVE Urine Urobilinogen 0.2 < = 1.0 MG/DL Urine Leukocyte Esterase NEGATIVE NEGATIVE Urine RBC (Auto) NEGATIVE NEGATIVE Urine RBC NONE /HPF Urine WBC NONE /HPF Urine Crystals NONE /LPF Urine Bacteria NEGATIVE /HPF Urine Casts NONE /LPF Urine Mucus NEGATIVE /LPF Urine Culture Indicated NO Urine Opiates Screen NEGATIVE NEGATIVE Urine Oxycodone Screen NEGATIVE NEGATIVE Urine Methadone Screen NEGATIVE NEGATIVE Urine Propoxyphene Screen NEGATIVE NEGATIVE Urine Barbiturates Screen NEGATIVE NEGATIVE Ur Tricyclic Antidepressants Screen NEGATIVE NEGATIVE Urine Phencyclidine Screen NEGATIVE NEGATIVE Urine Amphetamines Screen NEGATIVE NEGATIVE Urine Methamphetamines Screen NEGATIVE NEGATIVE Urine Benzodiazepines Screen NEGATIVE NEGATIVE Urine Cocaine Screen NEGATIVE NEGATIVE Urine Cannabinoids Screen NEGATIVE NEGATIVE My Orders Orders - DIANE OQUENDO MD Alcohol (05/03/23 15:38) Cbc With Automated Diff (05/03/23 15:38) Comprehensive Metabolic Panel (05/03/23 15:38) Drug Screen Stat (Urine) (05/03/23 15:38) Magnesium (05/03/23 15:38) Ua Culture If Indicated (05/03/23 15:38) Ed Iv/Invasive Line Start (05/03/23 15:38) Vital Signs/I&O 05/03/23 05/03/23 15:22 16:57 Temp 36.7 36.7 Pulse 75 78 Resp 16 16 B/P (MAP) 128/81 (97) 124/76 Pulse Ox 96 97 O2 Delivery Room Air Room Air Capillary Refill : Less Than 3 Seconds Blood Pressure Mean: 97 Progress Note #1: Time: 17:08 Progress Note Vital signs were stable. Labs were reviewed and interpreted in their entirety by me. CBC, CMP, and magnesium were unremarkable. Lymphocytic shift was noted on the CBC. Patient provided a urine specimen that looked like water. We were preparing for discharge and he walked out without his discharge papers or signing the discharge form. Progress Note #2: Progress Note Urinalysis was reviewed. As suspected, results are consistent with water. Patient was confronted about placing water in the specimen cup but denied doing so. Departure Impression Primary Impression: Memory difficulties Disposition: 01 HOME, SELF-CARE Condition: Improved Departure-Patient Inst. Decision time for Depature: 17:00 Referrals: CED GUERRA MD (PCP/Family) Primary Care Physician Add. Discharge Instructions: Return to care if you have worsening symptoms. Follow-up with your primary care provider and eye doctor as soon as possible. Continue your prescribed medications as previously directed. All discharge instructions reviewed with patient and/or family. Voiced understanding. Copy Copies To 1: [facility]/DIANE NGUYEN MD May 03, 2023 15:57
[2023-05-03 16:00] LABS: BASOPHILS % (AUTO) 0 % (0-10); EOSINOPHILS # (AUTO) 0.2 10^3/uL (0.0-0.3); EOSINOPHILS % (AUTO) 2 % (0-10); HEMATOCRIT 45 % (40-54); HEMOGLOBIN 15.1 g/dL (13.3-17.7); LYMPHOCYTES # (AUTO) 3.9 10^3/uL (1.0-4.0); LYMPHOCYTES % (AUTO) 46 % (12-44); MEAN CORPUSCULAR HEMOGLOBIN 29 pg (25-34); MEAN CORPUSCULAR HGB CONC 34 g/dL (32-36); MEAN CORPUSCULAR VOLUME 85 fL (80-99); MEAN PLATELET VOLUME 11.3 fL (9.0-12.2); MONOCYTES # (AUTO) 0.7 10^3/uL (0.0-1.0); MONOCYTES % (AUTO) 9 % (0-12); NEUTROPHILS # (AUTO) 3.7 10^3/uL (1.8-7.8); NEUTROPHILS % (AUTO) 43 % (42-75); PLATELET COUNT 232 10^3/uL (130-400); WHITE BLOOD COUNT 8.5 10^3/uL (4.3-11.0)
[2023-05-03 16:04] LABS: SODIUM 138 MMOL/L (135-145)
[2023-05-03 16:05] LABS: ALANINE AMINOTRANSFERASE 20 U/L (0-55); ALBUMIN 4.5 GM/DL (3.2-4.5); ALKALINE PHOSPHATASE 77 U/L (40-136); BILIRUBIN,TOTAL 0.5 MG/DL (0.1-1.0); BUN/CREATININE RATIO 16; CALCIUM 9.4 MG/DL (8.5-10.1); CARBON DIOXIDE 26 MMOL/L (21-32); CHLORIDE 101 MMOL/L (98-107); CREATININE SERUM 0.88 MG/DL (0.60-1.30); GFR ESTIMATED 112; GLUCOSE 104 MG/DL (70-105); POTASSIUM 4.4 MMOL/L (3.6-5.0); TOTAL PROTEIN 7.4 GM/DL (6.4-8.2)
[2023-05-03 16:57] VITALS: BP 124/76
[2023-05-03 17:07] LABS: BILIRUBIN,URINE NEGATIVE (NEGATIVE); CLARITY,URINE CLEAR; COLOR,URINE OTHER; GLUCOSE, URINE (UA) NEGATIVE (NEGATIVE); KETONES,URINE NEGATIVE (NEGATIVE); LEUKOCYTE ESTERASE ,URINE NEGATIVE (NEGATIVE); NITRITE,URINE NEGATIVE (NEGATIVE); PH,URINE 6.5 (5-9); PROTEIN,URINE NEGATIVE (NEGATIVE)
[2023-05-03 17:18] LABS: BACTERIA,URINE NEGATIVE /HPF
[2023-05-03 17:19] LABS: AMPHETAMINE SCREEN, URINE NEGATIVE (NEGATIVE); BARBITURATE SCREEN URINE NEGATIVE (NEGATIVE); BENZODIAZEPINES SCREEN URINE NEGATIVE (NEGATIVE); CANNABINOID SCREEN, URINE NEGATIVE (NEGATIVE); COCAINE SCREEN URINE NEGATIVE (NEGATIVE); METHADONE STAT NEGATIVE (NEGATIVE); OPIATE SCREEN URINE NEGATIVE (NEGATIVE); OXYCODONE STAT NEGATIVE (NEGATIVE); PROPOXYPHENE STAT NEGATIVE (NEGATIVE); TRICYCLIC ANTIDEPRESSANTS SCRE NEGATIVE (NEGATIVE)
== END 2023-05-03 17:08 | disposition home or self-care (01) ==
LOC: EDUNIT# 15:14 → ER FS 15:16
DX: R41.3 Other amnesia (principal); F17.210 Nicotine dependence, cigarettes, uncomplicated; Z91.040 Latex allergy status
CPT/HCPCS: 36415; 80053; 80306; 80320; 81000; 83735; 85025